=== PATIENT | male | born 1940 | race Caucasian/White ===

== ENCOUNTER 2018-06-17 21:12 | Inpatient (IN) | payer MEDICARE, MEDICAID ==
[~2018-06-17] VITALS: Ht 180.3 cm; Wt 76.2 kg
[~2018-06-17 21:12] MED LIST: ALBU8.5H8 INH; ASA/500T PO; ASPI-496 PO; ASPI-515 PO; CALCIUM +D PO; MULTIVITAMIN PO; OMEG300C PO; OMEPRAZOLE PO; RED YEAST RICE PO; SPIRIVA INH; UMEC1DIS INH; VITA1CAP3 PO
[2018-06-17] MEDS ORDERED: ALBUTEROL/IPRATROPIUM 2.5MG/0.5MG, 3 ML ONE (21:14)
[2018-06-17] MEDS ORDERED: methylPREDNISolone SOD SUCC 125 MG/2 ML ONE (21:26)
[2018-06-17] MEDS ORDERED: IPRATROPIUM 0.5 MG/2.5 ML INHA NPPB SCH (21:30)
[2018-06-17] MEDS ORDERED: methylPREDNISolone SOD SUCC 125 MG/2 ML IVP ONE (21:30)
[2018-06-17] MEDS ORDERED: ALBUTEROL 0.5%, 20ML NPPB SCH (21:30)
[2018-06-17] MEDS ORDERED: SODIUM CHLORIDE FLUSH 10ML SYR IVF ONE (21:30)
[2018-06-17] MEDS ORDERED: SODIUM CHLORIDE 0.9% 1,000ML IVBOLUS ONE (21:30)
[2018-06-17] MEDS ORDERED: MAGNESIUM SULFATE PMX 2GM/50ML 50 ML IVPB ONE (21:30)
[2018-06-17 21:49] LABS: BASOPHILS # (AUTO) 0.07 x10^3/uL (0-0.1); BASOPHILS % (AUTO) 1 % (0-1); EOSINOPHILS # (AUTO) 0.99 x10^3/uL (0-0.4); EOSINOPHILS % (AUTO) 12 % (1-7); LYMPHOCYTES # (AUTO) 2.07 x10^3/uL (1-3.4); LYMPHOCYTES % (AUTO) 26 % (22-44); MD NO; MEAN CORPUSCULAR HEMOGLOBIN 33.3 pg (27.5-34.5); MEAN CORPUSCULAR HGB CONC 33.3 g/dL (33.2-36.2); MEAN PLATELET VOLUME 7.4 fL (7.4-10.4); MONOCYTES # (AUTO) 0.65 x10^3/uL (0.2-0.8); MONOCYTES % (AUTO) 8 % (2-9); NEUTROPHILS # (AUTO) 4.27 x10^3/uL (1.8-6.8); NEUTROPHILS % (AUTO) 53 % (42-75); PLATELET COUNT 198 x10^3/uL (130-400); RED BLOOD COUNT 4.48 x10^6/uL (4.38-5.82); RED CELL DISTRIBUTION WIDTH 14.4 % (9.4-14.8)
[2018-06-17] MEDS ORDERED: LORazepam 2 MG/ML, 1ML ONE (21:55)
[2018-06-17 21:58] LABS: ALANINE AMINOTRANSFERASE 25 U/L (12-78); ALBUMIN 3.9 g/dL (3.4-5.0); ANION GAP 5 mmol/L (5-15); CALCIUM 8.6 mg/dL (8.5-10.1); CHLORIDE 109 mmol/L (98-107); CREATININE 0.99 mg/dL (0.7-1.3)
[2018-06-17] MEDS ORDERED: ALBUTEROL/IPRATROPIUM 2.5MG/0.5MG, 3 ML NPPB PRN (22:00)
[2018-06-17] MEDS ORDERED: PLEASE ENTER HEIGHT AND WEIGHT MC SCH (22:00)
[2018-06-17 22:02] LABS: ALKALINE PHOSPHATASE 106 U/L (45-117); BILIRUBIN,TOTAL 0.6 mg/dL (0.2-1.0); TROPONIN I < 0.015 ng/mL (0.000-0.045)
[2018-06-17] MEDS ORDERED: ASPI-496 PO (22:24)
[2018-06-17] MEDS ORDERED: ALBU18HF INH (22:24)
[2018-06-17] MEDS ORDERED: OMEP-110 PO (22:24)
[2018-06-17] MEDS ORDERED: UMEC1DIS INH (22:24)
[2018-06-17] MEDS ORDERED: LORazepam 2 MG/ML, 1ML IVPush ONE (22:30)
[2018-06-17 22:57] VITALS: BP 147/74
[2018-06-17] MEDS ORDERED: TEMAZEPAM 15 MG CAPSULE PO PRN (23:00)
[2018-06-17] MEDS ORDERED: LABETALOL 5MG/ML, 20ML IVPush PRN (23:00)
[2018-06-17] MEDS ORDERED: ONDANSETRON ODT 4 MG PO PRN (23:00)
[2018-06-17] MEDS ORDERED: ACETAMINOPHEN 325 MG TABLET PO PRN (23:00)
[2018-06-17] MEDS: NICOTINE 7 MG/24 HR PATCH.TD24 TD SCH (23:00)
[2018-06-17] MEDS: DOXYCYCLINE 100MG CAP PO SCH (23:55)
[2018-06-17] MEDS: ENOXAPARIN 40 MG/0.4 ML SQ SCH (23:55)
[2018-06-18] MEDS: methylPREDNISolone SOD SUCC 40 MG/ML IVPush SCH ×3 (00:03→23:30)
[2018-06-18 02:00] VITALS: BP 123/74
[2018-06-18] MEDS ORDERED: ALBUTEROL 0.5%, 20ML NPPB SCH (03:00)
[2018-06-18] MEDS ORDERED: ALBUTEROL/IPRATROPIUM 2.5MG/0.5MG, 3 ML NPPB PRN (04:00)
[2018-06-18 05:59] LABS: ALANINE AMINOTRANSFERASE 26 U/L (12-78); ALBUMIN 3.5 g/dL (3.4-5.0); ANION GAP 7 mmol/L (5-15); CALCIUM 8.5 mg/dL (8.5-10.1); CHLORIDE 108 mmol/L (98-107); CREATININE 0.97 mg/dL (0.7-1.3)
[2018-06-18 06:00] LABS: ALKALINE PHOSPHATASE 108 U/L (45-117); BILIRUBIN,TOTAL 0.5 mg/dL (0.2-1.0); TOTAL PROTEIN 6.7 g/dL (6.4-8.2)
[2018-06-18] MEDS: ALBUTEROL/IPRATROPIUM 2.5MG/0.5MG, 3 ML NPPB SCH ×5 (06:00→22:00)
[2018-06-18 06:01] LABS: BASOPHILS # (AUTO) 0.02 x10^3/uL (0-0.1); BASOPHILS % (AUTO) 0 % (0-1); EOSINOPHILS # (AUTO) 0.01 x10^3/uL (0-0.4); EOSINOPHILS % (AUTO) 0 % (1-7); LYMPHOCYTES # (AUTO) 0.55 x10^3/uL (1-3.4); LYMPHOCYTES % (AUTO) 7 % (22-44); MD NO; MEAN CORPUSCULAR HEMOGLOBIN 33.1 pg (27.5-34.5); MEAN CORPUSCULAR HGB CONC 33.5 g/dL (33.2-36.2); MEAN CORPUSCULAR VOLUME 98.8 fL (81-97); MEAN PLATELET VOLUME 7.6 fL (7.4-10.4); MONOCYTES # (AUTO) 0.03 x10^3/uL (0.2-0.8); MONOCYTES % (AUTO) 0 % (2-9); NEUTROPHILS # (AUTO) 7.27 x10^3/uL (1.8-6.8); NEUTROPHILS % (AUTO) 92 % (42-75); PLATELET COUNT 197 x10^3/uL (130-400); RED BLOOD COUNT 4.32 x10^6/uL (4.38-5.82); RED CELL DISTRIBUTION WIDTH 14.2 % (9.4-14.8)
[2018-06-18 07:59] VITALS: BP 134/67
[2018-06-18] MEDS: ASPIRIN 81 MG TABLET EC PO SCH (08:26)
[2018-06-18] MEDS: OMEPRAZOLE 20 MG CAPSULE.DR PO SCH (08:26)
[2018-06-18] MEDS: DOXYCYCLINE 100MG CAP PO SCH ×2 (08:26→20:33)
[2018-06-18 13:00] VITALS: BP 120/65
[2018-06-18 20:00] VITALS: BP 107/51
[2018-06-18] MEDS ORDERED: ZOLPIDEM 5MG TABLET PO SCH (21:00)
[2018-06-18] MEDS: NICOTINE 7 MG/24 HR PATCH.TD24 TD SCH (23:00)
[2018-06-18] MEDS: ENOXAPARIN 40 MG/0.4 ML SQ SCH (23:30)
[2018-06-19 02:00] VITALS: BP 125/65
[2018-06-19 05:44] LABS: ANION GAP 4 mmol/L (5-15); CALCIUM 8.7 mg/dL (8.5-10.1); CHLORIDE 108 mmol/L (98-107)
[2018-06-19 05:46] LABS: CREATININE 0.93 mg/dL (0.7-1.3)
[2018-06-19] MEDS: ALBUTEROL/IPRATROPIUM 2.5MG/0.5MG, 3 ML NPPB SCH ×2 (06:29→10:00)
[2018-06-19 06:58] VITALS: BP 131/65
[2018-06-19] MEDS: OMEPRAZOLE 20 MG CAPSULE.DR PO SCH (09:28)
[2018-06-19] MEDS: DOXYCYCLINE 100MG CAP PO SCH (09:28)
[2018-06-19] MEDS: ASPIRIN 81 MG TABLET EC PO SCH (09:28)
[2018-06-19 12:23] VITALS: BP 125/72
[2018-06-19] MEDS ORDERED: IPRA3AMP30 NPPB (14:11)
[2018-06-19] MEDS ORDERED: DOXY100C2 PO (14:11)
[2018-06-19] MEDS ORDERED: PRED10TA PO (14:11)
== END 2018-06-19 15:22 | disposition home health service (06) | DRG 189 ==
LOC: EDBD 21:12 → ED 22:18 → MERGE 22:36 → EDIP 22:36 → 4WST 23:32
PROVIDERS: ADMIT Internal Medicine; ATTEND Internal Medicine
PROC: 5A09357 Assistance with Respiratory Ventilation, Less than 24 Consecutive Hours, Continuous Positive Airway Pressure (ICD-10-PCS; principal; 2018-06-17)
DX: J96.01 Acute respiratory failure with hypoxia (principal); E87.4 Mixed disorder of acid-base balance; J44.1 Chronic obstructive pulmonary disease with (acute) exacerbation; F17.200 Nicotine dependence, unspecified, uncomplicated; K21.9 Gastro-esophageal reflux disease without esophagitis; R00.0 Tachycardia, unspecified; Z87.01 Personal history of pneumonia (recurrent)
CPT/HCPCS: 36415; 36600; 71045; 80048; 80053; 82803; 83735; 83880; 84484; 85025; 87040; 93005; 94640; 94660; J1650; J7620; J2060; J2920; J2930; J3475; J7030; J7512

== ENCOUNTER → 2018-06-25 | Outpatient (CLI) | payer MEDICARE, MEDICAID ==
[~2018-06-25] MED LIST changes: +ALBU18HF INH; +DOXY100C2 PO; +IPRA3AMP30 NPPB; +OMEP-110 PO; +PRED10TA PO
== END | disposition home or self-care (01) ==
LOC: CFH 08:31
PROVIDERS: ATTEND Family Medicine
DX: Z12.2 Encounter for screening for malignant neoplasm of respiratory organs (principal); J43.9 Emphysema, unspecified; R91.1 Solitary pulmonary nodule; F17.210 Nicotine dependence, cigarettes, uncomplicated
CPT/HCPCS: G0297

== ENCOUNTER 2018-08-27 07:42 | Inpatient (IN) | payer MEDICARE, MEDICAID ==
[~2018-08-27] VITALS: Ht 180.3 cm; Wt 72.8 kg
[2018-08-27] MEDS ORDERED: ALBUTEROL/IPRATROPIUM 2.5MG/0.5MG, 3 ML ONE ×2 (07:58→11:44)
[2018-08-27] MEDS ORDERED: SODIUM CHLORIDE FLUSH 10ML SYR IVF ONE (08:00)
[2018-08-27] MEDS ORDERED: ALBUTEROL/IPRATROPIUM 2.5MG/0.5MG, 3 ML NPPB SCH (08:00)
[2018-08-27] MEDS ORDERED: methylPREDNISolone SOD SUCC 125 MG/2 ML IVP ONE (08:00)
[2018-08-27 08:10] LABS: BASOPHILS # (AUTO) 0.09 x10^3/uL (0-0.1); BASOPHILS % (AUTO) 1 % (0-1); EOSINOPHILS # (AUTO) 0.65 x10^3/uL (0-0.4); EOSINOPHILS % (AUTO) 9 % (1-7); LYMPHOCYTES # (AUTO) 1.61 x10^3/uL (1-3.4); LYMPHOCYTES % (AUTO) 23 % (22-44); MD NO; MEAN CORPUSCULAR HEMOGLOBIN 32.6 pg (27.5-34.5); MEAN CORPUSCULAR HGB CONC 32.6 g/dL (33.2-36.2); MEAN CORPUSCULAR VOLUME 99.8 fL (81-97); MONOCYTES # (AUTO) 0.65 x10^3/uL (0.2-0.8); MONOCYTES % (AUTO) 9 % (2-9); NEUTROPHILS # (AUTO) 4.06 x10^3/uL (1.8-6.8); NEUTROPHILS % (AUTO) 58 % (42-75); PLATELET COUNT 261 x10^3/uL (130-400); RED BLOOD COUNT 3.86 x10^6/uL (4.38-5.82); RED CELL DISTRIBUTION WIDTH 14.2 % (9.4-14.8)
[2018-08-27 08:21] LABS: ALANINE AMINOTRANSFERASE 28 U/L (12-78); ALBUMIN 3.6 g/dL (3.4-5.0); ANION GAP 8 mmol/L (5-15); CALCIUM 8.8 mg/dL (8.5-10.1); CHLORIDE 109 mmol/L (98-107); CREATININE 1.06 mg/dL (0.7-1.3)
[2018-08-27 08:25] LABS: ALKALINE PHOSPHATASE 91 U/L (45-117); BILIRUBIN,TOTAL 0.4 mg/dL (0.2-1.0); TOTAL PROTEIN 6.8 g/dL (6.4-8.2); TROPONIN I < 0.015 ng/mL (0.000-0.045)
[2018-08-27] MEDS ORDERED: methylPREDNISolone SOD SUCC 125 MG/2 ML ONE (08:40)
[2018-08-27] MEDS ORDERED: OMNIPAQUE 350 MG/ML, 100ML BOTTLE ONE (09:24)
[2018-08-27] MEDS ORDERED: ASPIRIN 1 MG PO SCH (10:30)
[2018-08-27] MEDS ORDERED: ACETAMINOPHEN 325 MG TABLET PO PRN (10:30)
[2018-08-27] MEDS: PANTOPROZOLE 40MG TABLET PO SCH (10:30)
[2018-08-27] MEDS ORDERED: methylPREDNISolone SOD SUCC 40 MG/ML IVPush SCH (10:30)
[2018-08-27] MEDS: ENOXAPARIN 30 MG/0.3 ML SQ SCH (11:17)
[2018-08-27] MEDS ORDERED: ASPIRIN 81 MG TABLET EC PO SCH (11:59)
[2018-08-27 12:07] VITALS: BP 137/69
[2018-08-27] MEDS: ALBUTEROL/IPRATROPIUM 2.5MG/0.5MG, 3 ML NPPB SCH ×2 (15:00→20:00)
[2018-08-27] MEDS: methylPREDNISolone SOD SUCC 125 MG/2 ML IVPush SCH (18:03)
[2018-08-27] MEDS ORDERED: DIPHENHYDRAMINE 25 MG CAPSULE PO PRN (19:00)
[2018-08-27 20:13] VITALS: BP 108/64
[2018-08-27] MEDS: TEMPLATE NON-FORMULARY MED. (Umeclidinium Brm/Vilanterol Tr (Anoro Ellipta 62.5-25 Mcg Inh INH SCH (21:00)
[2018-08-28 00:45] VITALS: BP 119/65
[2018-08-28] MEDS: methylPREDNISolone SOD SUCC 125 MG/2 ML IVPush SCH ×2 (02:39→10:45)
[2018-08-28] MEDS: ENOXAPARIN 30 MG/0.3 ML SQ SCH (02:39)
[2018-08-28] MEDS: ALBUTEROL/IPRATROPIUM 2.5MG/0.5MG, 3 ML NPPB SCH ×2 (05:54→10:11)
[2018-08-28 07:29] VITALS: BP 107/59
[2018-08-28] MEDS: PANTOPROZOLE 40MG TABLET PO SCH (07:44)
[2018-08-28] MEDS: TEMPLATE NON-FORMULARY MED. (Umeclidinium Brm/Vilanterol Tr (Anoro Ellipta 62.5-25 Mcg Inh INH SCH (09:00)
[2018-08-28 12:00] VITALS: BP 125/76
[2018-08-28] MEDS ORDERED: GUAI600T80 PO (13:25)
[2018-08-28] MEDS ORDERED: PRED20TA PO (13:25)
== END 2018-08-28 14:05 | disposition home or self-care (01) | DRG 191 ==
LOC: ED 10:00 → EDIP 10:21 → 3NW 11:55
PROVIDERS: ADMIT Hospitalist; ATTEND Hospitalist
DX: J44.1 Chronic obstructive pulmonary disease with (acute) exacerbation (principal); J96.12 Chronic respiratory failure with hypercapnia; F17.200 Nicotine dependence, unspecified, uncomplicated; K21.9 Gastro-esophageal reflux disease without esophagitis; Z79.899 Other long term (current) drug therapy; Z99.81 Dependence on supplemental oxygen; Z79.82 Long term (current) use of aspirin
CPT/HCPCS: 36415; 71045; 71275; 80053; 83880; 84484; 85025; 85379; 93005; 93306; 93970; 94640; 96374; G0378; J1650; J7620; Q9967; J2930; Q0163

== ENCOUNTER → 2019-01-14 | Outpatient (CLI) | payer MEDICARE, MEDICAID ==
[~2019-01-14] MED LIST changes: +GUAI600T80 PO; +PRED20TA PO
== END | disposition home or self-care (01) ==
LOC: CFH 09:11
PROVIDERS: ATTEND Family Medicine
DX: Z12.2 Encounter for screening for malignant neoplasm of respiratory organs (principal); J43.2 Centrilobular emphysema; R91.1 Solitary pulmonary nodule; I25.10 Atherosclerotic heart disease of native coronary artery without angina pectoris; F17.210 Nicotine dependence, cigarettes, uncomplicated
CPT/HCPCS: G0297

== ENCOUNTER 2019-03-20 06:42 | Inpatient (IN) | payer MEDICARE, MEDICAID ==
[~2019-03-20] VITALS: Ht 180.3 cm; Wt 70.6 kg
--- NOTE | 2019-03-20 06:50 | NUR ---
78 YR OLD MALE ARRIVED VIA EMS, PER REPORT PT WITH INCREASING SOB OVER THE LAST COUPLE OF HOURS. NO RELIEF FROM INHALERS. PT SPEAKING IN 6-8 WORD SENTENCES. UPON EMS ARRIVAL PT WITH RA SAT OF 80% INCREASED TO 96% WITH ALBUTEROL AND DUONEB INHALERS. PT WITH 18G IN LFA. PT PLACED ON MONITORS, AUTO BP AND PULSE OX MONITORS. PT PLACED ON OXYMASK AT 3L. DR MCGARRY AT BEDSIDE TO EVAL PT
[2019-03-20] MEDS ORDERED: SODIUM CHLORIDE FLUSH 10ML SYR IVF ONE (07:00)
[2019-03-20 07:31] LABS: BASOPHILS # (AUTO) 0.05 x10^3/uL (0-0.1); BASOPHILS % (AUTO) 1 % (0-1); EOSINOPHILS # (AUTO) 0.54 x10^3/uL (0-0.4); EOSINOPHILS % (AUTO) 8 % (1-7); LYMPHOCYTES # (AUTO) 1.64 x10^3/uL (1-3.4); LYMPHOCYTES % (AUTO) 24 % (22-44); MD NO; MEAN CORPUSCULAR HEMOGLOBIN 32.3 pg (27.5-34.5); MEAN CORPUSCULAR HGB CONC 33.3 g/dL (33.2-36.2); MEAN PLATELET VOLUME 7.4 fL (7.4-10.4); MONOCYTES # (AUTO) 0.65 x10^3/uL (0.2-0.8); MONOCYTES % (AUTO) 10 % (2-9); NEUTROPHILS # (AUTO) 3.89 x10^3/uL (1.8-6.8); NEUTROPHILS % (AUTO) 57 % (42-75); PLATELET COUNT 214 x10^3/uL (130-400); RED BLOOD COUNT 4.19 x10^6/uL (4.38-5.82); RED CELL DISTRIBUTION WIDTH 14.2 % (9.4-14.8)
[2019-03-20 07:43] LABS: ALANINE AMINOTRANSFERASE 21 U/L (12-78); ALBUMIN 3.6 g/dL (3.4-5.0); ANION GAP 7 mmol/L (5-15); CHLORIDE 113 mmol/L (98-107); CREATININE 1.14 mg/dL (0.7-1.3)
[2019-03-20 07:47] LABS: ALKALINE PHOSPHATASE 88 U/L (45-117); BILIRUBIN,TOTAL 0.3 mg/dL (0.2-1.0); TOTAL PROTEIN 6.6 g/dL (6.4-8.2)
--- NOTE | 2019-03-20 08:09 | NUR ---
PT SITTING UP ON GURNEY, NO ACUTE DISTRESS NOTED, PT UPDATED ON POC. NO NEEDS EXPRESSED AT THIS TIME.
--- NOTE | 2019-03-20 08:29 | NUR ---
REPORT TO DYAN FLORES, POC DISCUSSED.
[2019-03-20 08:57] VITALS: BP 138/71
[2019-03-20] MEDS ORDERED: SODIUM CHLORIDE FLUSH 10ML SYR IVF PRN (09:00)
[2019-03-20] MEDS ORDERED: OMEPRAZOLE 20 MG CAPSULE.DR PO SCH (10:00)
[2019-03-20] MEDS ORDERED: hydrALAzine 20 MG/ML, 1ML IVPush PRN (10:00)
[2019-03-20] MEDS ORDERED: ZOLPIDEM 5MG TABLET PO PRN (10:00)
[2019-03-20] MEDS ORDERED: ENOXAPARIN 40 MG/0.4 ML SQ SCH (10:00)
[2019-03-20] MEDS ORDERED: GUAIFENESIN/COD200MG-20MG/10ML LIQUID PO PRN (10:00)
[2019-03-20] MEDS ORDERED: NITROGLYCERIN 0.4 MG BOTTLE (25 TABS) SL PRN (10:00)
[2019-03-20] MEDS ORDERED: NICOTINE 7 MG/24 HR PATCH.TD24 TD SCH (10:00)
[2019-03-20] MEDS ORDERED: ASPIRIN 81 MG TABLET EC PO SCH (10:00)
[2019-03-20] MEDS ORDERED: ACETAMINOPHEN 325 MG TABLET PO PRN (10:00)
[2019-03-20] MEDS ORDERED: IPRATROPIUM 0.5 MG/2.5 ML INHA NPPB SCH ×2 (11:00)
[2019-03-20 15:22] VITALS: BP 127/71
[2019-03-20] MEDS ORDERED: BUDESONIDE 0.5 MG/2 ML INHA NPPB SCH (21:00)
== END 2019-03-20 15:52 | disposition left against medical advice (07) | DRG 189 ==
LOC: ED 07:28 → EDIP 08:00 → 3NE 08:50
PROVIDERS: ADMIT Hospitalist; ATTEND Hospitalist
DX: J96.21 Acute and chronic respiratory failure with hypoxia (principal); F12.90 Cannabis use, unspecified, uncomplicated; F17.210 Nicotine dependence, cigarettes, uncomplicated; J43.9 Emphysema, unspecified; K21.9 Gastro-esophageal reflux disease without esophagitis; Z53.21 Procedure and treatment not carried out due to patient leaving prior to being seen by health care provider; Z90.79 Acquired absence of other genital organ(s); Z99.81 Dependence on supplemental oxygen
CPT/HCPCS: 36415; 71045; 80053; 83880; 85025; 93005; 94640; 99285; G0378; J1650; J7644; J7512

== ENCOUNTER 2019-03-21 10:15 | Emergency (ER) | payer MEDICARE, MEDICAID ==
[~2019-03-21] VITALS: Ht 177.8 cm; Wt 75.0 kg
[2019-03-21] MEDS ORDERED: PLEASE ENTER HEIGHT AND WEIGHT MC SCH (10:30)
[2019-03-21] MEDS ORDERED: SODIUM CHLORIDE FLUSH 10ML SYR IVF ONE (10:30)
--- NOTE | 2019-03-21 12:09 | NUR ---
we are awaiting communication from the [facility] o2 regarding oxygen supplementation. he is sitting comfortably on an ER gurney watching television. he is awre of the process in place, and is agreeable to plan. o2 saturation is >90% w 4l nc. i will continue to monitor until time of d/c.
--- NOTE | 2019-03-21 14:04 | NUR ---
PT IS RESTING COMFORTABLY ON AN E.R. GURNEY. NO ACUTE CHANGES NOTED HE AWAITS HOME O2. I WILL CONTINUE TO MONITOR AND TREAT ORDERED, WELL PRN.
--- NOTE | 2019-03-21 14:42 | NUR ---
THROUGHPUT RN-RECEIVED CALL FROM [facility] THAT PATIENT IS ALREADY ON SERVICE FOR OXYGEN WITH [facility] AND THEY WILL NOT BE ABLE TO PROVIDE SERVICE. CALLED [facility] AND FAXED ORDERES TO THEM. [facility] TO CALL BACK WITH ETA FOR O2 DELIVERY.
--- NOTE | 2019-03-21 15:00 | NUR ---
Bedside SBAR report received from RNSebastien. Pt sitting upright on gurney, O2 via NC on. Pt is aware that he is waiting for the home oxygen provider to bring him an O2 tank here and a concentrater at his home and then he will be d/c'd via cab.
--- NOTE | 2019-03-21 15:05 | NUR ---
ROCIO (rn) IS ASSUMING CARE OF THIS PT AT THIS TIME. SBAR REPORT WAS EXCHANGED AT THE BEDSIDE.
--- NOTE | 2019-03-21 15:55 | NUR ---
Oxygen delivered and rep at bedside with pt.
[2019-03-21 16:03] VITALS: BP 147/94
--- NOTE | 2019-03-21 16:04 | NUR ---
Patient/Caregiver given discharge instructions and they have confirmed that they understand the instructions. Patient ambulatory with steady gait. Pt given [facility] voucher for safe discharge home.
== END 2019-03-21 16:05 | disposition home or self-care (01) ==
LOC: ED 12:41
DX: J44.9 Chronic obstructive pulmonary disease, unspecified (principal); Z76.0 Encounter for issue of repeat prescription; F17.200 Nicotine dependence, unspecified, uncomplicated; Z99.81 Dependence on supplemental oxygen
CPT/HCPCS: 93005; 99283

== ENCOUNTER 2019-06-24 06:14 | Emergency (ER) | payer MEDICARE, MEDICAID ==
[~2019-06-24] VITALS: Ht 180.3 cm; Wt 77.2 kg
[2019-06-24 07:46] VITALS: BP 134/66
== END 2019-06-24 08:19 | disposition home or self-care (01) ==
LOC: ED 08:09
DX: J44.1 Chronic obstructive pulmonary disease with (acute) exacerbation (principal); K21.9 Gastro-esophageal reflux disease without esophagitis; Z87.891 Personal history of nicotine dependence
CPT/HCPCS: 36415; 71046; 80048; 82040; 83880; 84484; 85025; 93005; 94640; 96374; 99284; J2930; J7620

== ENCOUNTER 2019-10-14 03:19 | Emergency (ER) | payer MEDICARE, MEDICAID ==
[~2019-10-14] VITALS: Ht 180.3 cm; Wt 73.0 kg
[~2019-10-14 03:19] MED LIST changes: +METH4TAB2 PO
--- NOTE | 2019-10-14 03:28 | NUR ---
Patient states he experienced sudden SOB. Patient is normally on O2 at home via NC at 4lpm. Patient states he took his Ventolin tonight and it did not help. Patient states he was admitted to the hospital for respiratory problems and was prescribed "something that you take one day and more the next and more the next," however patient stopped taking it when he had about three days left because it made him feel dizzy. Patient is resting in the gurney in no apparent distress. He is speaking in full sentences. Skin PWD.
[2019-10-14 03:38] LABS: BASOPHILS # (AUTO) 0.05 x10^3/uL (0-0.1); BASOPHILS % (AUTO) 1 % (0-1); EOSINOPHILS # (AUTO) 0.43 x10^3/uL (0-0.4); EOSINOPHILS % (AUTO) 4 % (1-7); LYMPHOCYTES # (AUTO) 1.17 x10^3/uL (1-3.4); LYMPHOCYTES % (AUTO) 12 % (22-44); MD NO; MEAN CORPUSCULAR HEMOGLOBIN 33.5 pg (27.5-34.5); MEAN CORPUSCULAR HGB CONC 32.5 g/dL (33.2-36.2); MONOCYTES # (AUTO) 0.61 x10^3/uL (0.2-0.8); MONOCYTES % (AUTO) 6 % (2-9); NEUTROPHILS # (AUTO) 7.67 x10^3/uL (1.8-6.8); NEUTROPHILS % (AUTO) 77 % (42-75); PLATELET COUNT 306 x10^3/uL (130-400); RED BLOOD COUNT 3.86 x10^6/uL (4.38-5.82); RED CELL DISTRIBUTION WIDTH 14.4 % (9.4-14.8)
[2019-10-14] MEDS ORDERED: ALBUTEROL/IPRATROPIUM 2.5MG/0.5MG, 3 ML ONE (03:42)
--- NOTE | 2019-10-14 03:47 | NUR ---
RT in room
[2019-10-14 03:52] LABS: ALBUMIN 3.5 g/dL (3.4-5.0); ANION GAP 3 mmol/L (5-15); CALCIUM 8.9 mg/dL (8.5-10.1); CHLORIDE 109 mmol/L (98-107); CREATININE 0.98 mg/dL (0.7-1.3)
[2019-10-14 03:56] LABS: TROPONIN I < 0.015 ng/mL (0.000-0.045)
--- NOTE | 2019-10-14 04:18 | NUR ---
Patient resting comfortably in gurney and in no obvious distress. Patient states he feels sleepy.
[2019-10-14 04:49] VITALS: BP 132/58
== END 2019-10-14 04:59 ==
LOC: ED 04:40
DX: J44.1 Chronic obstructive pulmonary disease with (acute) exacerbation (principal); J90 Pleural effusion, not elsewhere classified; I10 Essential (primary) hypertension; Z87.891 Personal history of nicotine dependence; Z72.89 Other problems related to lifestyle
CPT/HCPCS: 36415; 71045; 80048; 82040; 84484; 85025; 93005; 94640; 99284; J7512

== ENCOUNTER 2019-12-06 02:43 | Emergency (ER) | payer MEDICARE, MEDICAID ==
[~2019-12-06] VITALS: Ht 180.3 cm; Wt 75.0 kg
[2019-12-06] MEDS ORDERED: ALBUTEROL SULFATE 2.5 MG/3 ML NPPB ONE (03:00)
[2019-12-06] MEDS ORDERED: SODIUM CHLORIDE FLUSH 10ML SYR IVF ONE (03:00)
[2019-12-06 03:10] LABS: BASOPHILS # (AUTO) 0.01 x10^3/uL (0-0.1); BASOPHILS % (AUTO) 0 % (0-1); EOSINOPHILS # (AUTO) 0.14 x10^3/uL (0-0.4); EOSINOPHILS % (AUTO) 2 % (1-7); LYMPHOCYTES # (AUTO) 1.07 x10^3/uL (1-3.4); LYMPHOCYTES % (AUTO) 17 % (22-44); MD NO; MEAN CORPUSCULAR HEMOGLOBIN 33.4 pg (27.5-34.5); MEAN CORPUSCULAR HGB CONC 33.5 g/dL (33.2-36.2); MEAN CORPUSCULAR VOLUME 99.6 fL (81-97); MEAN PLATELET VOLUME 7.3 fL (7.4-10.4); MONOCYTES # (AUTO) 0.63 x10^3/uL (0.2-0.8); MONOCYTES % (AUTO) 10 % (2-9); NEUTROPHILS # (AUTO) 4.39 x10^3/uL (1.8-6.8); NEUTROPHILS % (AUTO) 70 % (42-75); PLATELET COUNT 254 x10^3/uL (130-400); RED CELL DISTRIBUTION WIDTH 15.1 % (9.4-14.8)
[2019-12-06] MEDS ORDERED: ALBUTEROL SULFATE 2.5MG/0.5ML ONE (03:18)
--- NOTE | 2019-12-06 03:20 | NUR ---
PT RESTING WITH EYES CLOSED. MONITOR IN PLACE.
[2019-12-06 03:23] LABS: ALBUMIN 3.2 g/dL (3.4-5.0); ANION GAP 4 mmol/L (5-15); CALCIUM 8.9 mg/dL (8.5-10.1); CHLORIDE 111 mmol/L (98-107); CREATININE 0.98 mg/dL (0.7-1.3)
[2019-12-06 03:26] LABS: TROPONIN I < 0.015 ng/mL (0.000-0.045)
[2019-12-06 04:40] VITALS: BP 146/71
== END 2019-12-06 04:42 | disposition home or self-care (01) ==
LOC: ED 04:20
DX: J44.1 Chronic obstructive pulmonary disease with (acute) exacerbation (principal); I10 Essential (primary) hypertension; F17.210 Nicotine dependence, cigarettes, uncomplicated
CPT/HCPCS: 36415; 71045; 80048; 82040; 83880; 84484; 85025; 93005; 94640; 99284; J7512; J7613

== ENCOUNTER 2020-02-14 03:59 | Emergency (ER) | payer MEDICAID, MEDICARE ==
[~2020-02-14] VITALS: Ht 180.3 cm; Wt 75.0 kg
--- NOTE | 2020-02-14 04:29 | NUR ---
Pt arrives to ed for chest pain with onset baout a week ago but has progressively gotten worse. Pt reports he has cracked ribs on his right side that is causing him discomfort onto his left side. Pt also has golf ball size lump on the lower right lateral side of his chest that is palpable. Pt reports that his pcp wants him to get a cat scan or mri to determine whats going on with the mass. Pt is in the low 90-92% on room air. Pt reports that he feels better with oxygen on. Pt has clear lung sounds. Even and shallow respirations. Pt connected to monitors and call light in reach.
--- NOTE | 2020-02-14 04:59 | NUR ---
Bedside report to Vanna FLORES.
[2020-02-14] MEDS ORDERED: SODIUM CHLORIDE FLUSH 10ML SYR IVF ONE (05:30)
[2020-02-14 05:42] LABS: BASOPHILS # (AUTO) 0.04 x10^3/uL (0-0.1); BASOPHILS % (AUTO) 1 % (0-1); EOSINOPHILS # (AUTO) 0.19 x10^3/uL (0-0.4); EOSINOPHILS % (AUTO) 3 % (1-7); LYMPHOCYTES # (AUTO) 1.39 x10^3/uL (1-3.4); LYMPHOCYTES % (AUTO) 21 % (22-44); MD NO; MEAN CORPUSCULAR HEMOGLOBIN 32.8 pg (27.5-34.5); MEAN CORPUSCULAR HGB CONC 33.4 g/dL (33.2-36.2); MEAN CORPUSCULAR VOLUME 98.2 fL (81-97); MEAN PLATELET VOLUME 7.5 fL (7.4-10.4); MONOCYTES # (AUTO) 0.45 x10^3/uL (0.2-0.8); MONOCYTES % (AUTO) 7 % (2-9); NEUTROPHILS # (AUTO) 4.63 x10^3/uL (1.8-6.8); NEUTROPHILS % (AUTO) 69 % (42-75); PLATELET COUNT 222 x10^3/uL (130-400); RED BLOOD COUNT 3.72 x10^6/uL (4.38-5.82); RED CELL DISTRIBUTION WIDTH 13.5 % (9.4-14.8)
--- NOTE | 2020-02-14 05:50 | NUR ---
Pt ambulated to restroom without o2. Upon returning to room, pt'sd o2 sat was 85% on room air. Pt placed on 2L nc and sat's improved
[2020-02-14 05:56] LABS: ALBUMIN 3.6 g/dL (3.4-5.0); ANION GAP 6 mmol/L (5-15); CALCIUM 9.3 mg/dL (8.5-10.1); CHLORIDE 108 mmol/L (98-107)
[2020-02-14 06:01] LABS: ALANINE AMINOTRANSFERASE 17 U/L (12-78); ALKALINE PHOSPHATASE 85 U/L (45-117); BILIRUBIN,TOTAL 0.4 mg/dL (0.2-1.0); CREATININE 1.18 mg/dL (0.7-1.3); TOTAL PROTEIN 6.7 g/dL (6.4-8.2); TROPONIN I < 0.015 ng/mL (0.000-0.045)
[2020-02-14] MEDS ORDERED: OMNIPAQUE 350 MG/ML, 100ML BOTTLE ONE (06:45)
--- NOTE | 2020-02-14 07:00 | NUR ---
REPORT FROM DONALD. PT SLEEPING. VSS
--- NOTE | 2020-02-14 08:23 | NUR ---
Patient/Caregiver given discharge instructions and they have confirmed that they understand the instructions. Patient ambulatory with steady gait.
[2020-02-14 08:34] VITALS: BP 136/77
== END 2020-02-14 08:36 | disposition home or self-care (01) ==
LOC: ED 04:22
DX: J44.1 Chronic obstructive pulmonary disease with (acute) exacerbation (principal); R07.89 Other chest pain; K21.9 Gastro-esophageal reflux disease without esophagitis; I10 Essential (primary) hypertension; J96.90 Respiratory failure, unspecified, unspecified whether with hypoxia or hypercapnia; R94.31 Abnormal electrocardiogram [ECG] [EKG]
CPT/HCPCS: 36415; 71045; 71275; 80053; 83880; 84484; 85025; 93005; 99285; Q9967

== ENCOUNTER 2020-02-24 07:01 | Emergency (ER) | payer MEDICARE ==
[~2020-02-24] VITALS: Ht 180.3 cm; Wt 71.4 kg
[2020-02-24 07:05] VITALS: BP 151/77
--- NOTE | 2020-02-24 08:11 | NUR ---
Patient given discharge instructions and Rx, they have confirmed that they understand the instructions. Patient ambulatory with steady gait.
== END 2020-02-24 08:12 | disposition home or self-care (01) ==
LOC: ED 07:17
DX: K40.91 Unilateral inguinal hernia, without obstruction or gangrene, recurrent (principal); J43.9 Emphysema, unspecified; Z76.0 Encounter for issue of repeat prescription; I10 Essential (primary) hypertension; F17.210 Nicotine dependence, cigarettes, uncomplicated; K21.9 Gastro-esophageal reflux disease without esophagitis
CPT/HCPCS: 99281

== ENCOUNTER 2020-03-20 05:21 | Emergency (ER) | payer MEDICARE ==
[~2020-03-20] VITALS: Ht 180.3 cm; Wt 70.3 kg
[2020-03-20 05:23] VITALS: BP 157/81
--- NOTE | 2020-03-20 06:17 | NUR ---
PT SITTING IN ROOM NO NEEDS AT THIS TIME
== END 2020-03-20 06:29 | disposition home or self-care (01) ==
LOC: ED 06:27
DX: M94.0 Chondrocostal junction syndrome [Tietze] (principal); R94.31 Abnormal electrocardiogram [ECG] [EKG]
CPT/HCPCS: 71045; 93005; 99283

== ENCOUNTER 2020-04-29 02:24 | Emergency (ER) | payer MEDICARE ==
[~2020-04-29] VITALS: Ht 180.3 cm; Wt 70.5 kg
--- NOTE | 2020-04-29 02:44 | NUR ---
PT TO ED WITH MULTIPLE COMPLAINTS. REPORTS HX OF CHRONIC LUNG DISEASE. REPORTS SHORTNESS OF BREATH. ON HOME O2. 4L. REPORTS A PAIN ON LEFT RIB AREA. REPORTS DRY COUGH. REPORTS USING INHALER AT HOME. 98% ON 4L.
[2020-04-29] MEDS ORDERED: ACETAMINOPHEN 500 MG TABLET PO ONE (03:00)
[2020-04-29] MEDS ORDERED: ACETAMINOPHEN 500 MG TABLET ONE (03:12)
[2020-04-29 03:17] LABS: BASOPHILS # (AUTO) 0.04 x10^3/uL (0-0.1); BASOPHILS % (AUTO) 1 % (0-1); EOSINOPHILS # (AUTO) 0.23 x10^3/uL (0-0.4); EOSINOPHILS % (AUTO) 3 % (1-7); LYMPHOCYTES # (AUTO) 1.43 x10^3/uL (1-3.4); LYMPHOCYTES % (AUTO) 20 % (22-44); MD NO; MEAN CORPUSCULAR HEMOGLOBIN 32.4 pg (27.5-34.5); MEAN CORPUSCULAR HGB CONC 33.5 g/dL (33.2-36.2); MEAN CORPUSCULAR VOLUME 96.8 fL (81-97); MEAN PLATELET VOLUME 7.3 fL (7.4-10.4); MONOCYTES # (AUTO) 0.46 x10^3/uL (0.2-0.8); MONOCYTES % (AUTO) 6 % (2-9); NEUTROPHILS # (AUTO) 5.13 x10^3/uL (1.8-6.8); NEUTROPHILS % (AUTO) 70 % (42-75); PLATELET COUNT 229 x10^3/uL (130-400); RED BLOOD COUNT 3.84 x10^6/uL (4.38-5.82); RED CELL DISTRIBUTION WIDTH 13.7 % (9.4-14.8)
[2020-04-29 03:24] LABS: ALBUMIN 3.7 g/dL (3.4-5.0); ANION GAP 3 mmol/L (5-15); CALCIUM 9.1 mg/dL (8.5-10.1); CHLORIDE 110 mmol/L (98-107); CREATININE 1.15 mg/dL (0.7-1.3)
[2020-04-29 03:28] LABS: TROPONIN I < 0.015 ng/mL (0.000-0.045)
[2020-04-29 05:37] VITALS: BP 112/70
== END 2020-04-29 05:39 | disposition home or self-care (01) ==
LOC: ED 04:39
DX: R07.89 Other chest pain (principal); R06.02 Shortness of breath; R05 Cough; R94.31 Abnormal electrocardiogram [ECG] [EKG]; K21.9 Gastro-esophageal reflux disease without esophagitis; J44.9 Chronic obstructive pulmonary disease, unspecified; I10 Essential (primary) hypertension; F17.200 Nicotine dependence, unspecified, uncomplicated
CPT/HCPCS: 36415; 71045; 80048; 82040; 84484; 85025; 93005; 99285

== ENCOUNTER 2020-05-18 06:33 | Emergency (ER) | payer MEDICARE ==
[~2020-05-18] VITALS: Ht 180.3 cm; Wt 70.6 kg
--- NOTE | 2020-05-18 07:08 | NUR ---
PT SOB WHEN GOING TO STORE [facility]. HAS RX FOR PORTABLE 02 BUT HAS BEEN UNABLE TO GET RX FILLED. PT ON; HOME 02 4L. PT PRESENTS SOB WITH AUDIBLE WHEEZES. ON 4L NC WITH EFFECT, SP02 = 99%. LUNG SOUNDS WITH FAINT CRACKLES NOTED TO LEFT POST BASE AND EXP WHEEZES T/O. VS OTHERWISE STABLE. CALL LIGHT W/I REACH. ED PROVIDER EVAL PENDING.
--- NOTE | 2020-05-18 07:54 | NUR ---
DR LOMBARDI AT BEDSIDE. PT ASSESSMENT REV AND QUESTIONS ANSWERED. ORDERS REC'D
[2020-05-18] MEDS ORDERED: CEFTRIAXONE PMX 1GM/50ML 50 ML IVPB ONE (08:00)
[2020-05-18] MEDS ORDERED: CEFTRIAXONE PMX 1GM/50ML 50 ML ONE (08:08)
[2020-05-18 08:21] LABS: ALBUMIN 3.7 g/dL (3.4-5.0); ANION GAP 5 mmol/L (5-15); CALCIUM 9.1 mg/dL (8.5-10.1); CHLORIDE 108 mmol/L (98-107)
[2020-05-18 08:23] LABS: ALANINE AMINOTRANSFERASE 20 U/L (12-78); C-REACTIVE PROTEIN, QUANT 0.08 mg/dL (0.02-0.49); CREATININE 1.18 mg/dL (0.7-1.3)
--- NOTE | 2020-05-18 08:27 | NUR ---
IV ANTIBIOTICS INFUSING W/O DIFFICULTY. CALL LIGHT W/I REACH, NAD NOTED, VSS
[2020-05-18 08:28] LABS: ALKALINE PHOSPHATASE 67 U/L (45-117); BASOPHILS # (AUTO) 0.03 x10^3/uL (0-0.1); BASOPHILS % (AUTO) 0 % (0-1); BILIRUBIN,TOTAL 0.3 mg/dL (0.2-1.0); EOSINOPHILS # (AUTO) 0.29 x10^3/uL (0-0.4); EOSINOPHILS % (AUTO) 4 % (1-7); LYMPHOCYTES # (AUTO) 1.32 x10^3/uL (1-3.4); LYMPHOCYTES % (AUTO) 19 % (22-44); MD NO; MEAN CORPUSCULAR HEMOGLOBIN 31.7 pg (27.5-34.5); MEAN CORPUSCULAR HGB CONC 32.2 g/dL (33.2-36.2); MEAN CORPUSCULAR VOLUME 98.5 fL (81-97); MEAN PLATELET VOLUME 7.3 fL (7.4-10.4); MONOCYTES # (AUTO) 0.53 x10^3/uL (0.2-0.8); MONOCYTES % (AUTO) 8 % (2-9); NEUTROPHILS # (AUTO) 4.87 x10^3/uL (1.8-6.8); NEUTROPHILS % (AUTO) 69 % (42-75); PLATELET COUNT 220 x10^3/uL (130-400); RED BLOOD COUNT 3.78 x10^6/uL (4.38-5.82); RED CELL DISTRIBUTION WIDTH 13.8 % (9.4-14.8); TOTAL PROTEIN 6.6 g/dL (6.4-8.2)
[2020-05-18 10:12] VITALS: BP 128/53
--- NOTE | 2020-05-18 10:16 | NUR ---
SBAR RPT TO SANDRA BILLY. ALL TESTS RESULTED, CHART UP FOR RECHECK, VSS
--- NOTE | 2020-05-18 10:42 | NUR ---
With reassessment-patient complaining of chest pain Vss Emt to bedside for 12 lead ecg Provider made aware
--- NOTE | 2020-05-18 10:57 | NUR ---
UA/TROPONIN ORDERS PLACED PER VERBAL ORDER FROM DR. LOMBARDI
[2020-05-18 11:16] LABS: MICROSCOPIC NOT IND
[2020-05-18 11:23] LABS: TROPONIN I < 0.015 ng/mL (0.000-0.045)
[2020-05-18] MEDS ORDERED: OMNIPAQUE 350 MG/ML, 75ML BOTTLE ONE (11:42)
--- NOTE | 2020-05-18 13:10 | NUR ---
dr. rivers (hospitalist) to bedside. Patient expressed wish to go home. Hospitalist agreeable. Throughput rn made aware
--- NOTE | 2020-05-18 13:44 | NUR ---
Transported to discharge lounge from Er after review of home oxygen plan and removbal of piv Provided with taxi voucher as well
== END 2020-05-18 13:15 ==
LOC: ED 07:08 → UNDOADMIN 11:55 → EDIP 11:55 → ED 13:15
DX: J43.9 Emphysema, unspecified (principal); R06.00 Dyspnea, unspecified; Z20.828 Contact with and (suspected) exposure to other viral communicable diseases; R00.1 Bradycardia, unspecified; R06.02 Shortness of breath; R50.9 Fever, unspecified; R53.1 Weakness; K21.9 Gastro-esophageal reflux disease without esophagitis; I10 Essential (primary) hypertension
CPT/HCPCS: 36415; 71045; 71275; 80053; 81003; 82728; 83605; 83615; 84484; 85025; 85379; 86140; 87040; 87635; 93005; 96365; 99285; J0696; Q9967

== ENCOUNTER 2020-05-28 07:55 | Emergency (ER) | payer MEDICARE ==
[~2020-05-28] VITALS: Ht 180.3 cm; Wt 75.0 kg
--- NOTE | 2020-05-28 08:09 | NUR ---
Pt brought in by JESSICA from home for chief complaint of sob starting 3 hrs ago. Pt arrives A&O with breathing treatment administered. Per [facility] pts had audible wheezing, albuterol x2 & duoneb x1 administered ship's captain.
[2020-05-28 08:45] LABS: BASOPHILS # (AUTO) 0.07 x10^3/uL (0-0.1); BASOPHILS % (AUTO) 1 % (0-1); EOSINOPHILS # (AUTO) 0.47 x10^3/uL (0-0.4); EOSINOPHILS % (AUTO) 7 % (1-7); LYMPHOCYTES # (AUTO) 1.66 x10^3/uL (1-3.4); LYMPHOCYTES % (AUTO) 25 % (22-44); MD NO; MEAN CORPUSCULAR HEMOGLOBIN 31.6 pg (27.5-34.5); MEAN CORPUSCULAR HGB CONC 32.1 g/dL (33.2-36.2); MEAN CORPUSCULAR VOLUME 98.6 fL (81-97); MEAN PLATELET VOLUME 7.3 fL (7.4-10.4); MONOCYTES # (AUTO) 0.58 x10^3/uL (0.2-0.8); MONOCYTES % (AUTO) 9 % (2-9); NEUTROPHILS # (AUTO) 4.02 x10^3/uL (1.8-6.8); NEUTROPHILS % (AUTO) 59 % (42-75); PLATELET COUNT 203 x10^3/uL (130-400); RED BLOOD COUNT 4.03 x10^6/uL (4.38-5.82); RED CELL DISTRIBUTION WIDTH 14.3 % (9.4-14.8)
[2020-05-28 08:56] LABS: ALANINE AMINOTRANSFERASE 23 U/L (12-78); ALBUMIN 4.3 g/dL (3.4-5.0); ANION GAP 3 mmol/L (5-15); CALCIUM 9.5 mg/dL (8.5-10.1); CHLORIDE 108 mmol/L (98-107)
[2020-05-28] MEDS ORDERED: methylPREDNISolone SOD SUCC 125 MG/2 ML IVPush ONE (09:00)
--- NOTE | 2020-05-28 09:00 | NUR ---
pt resting in bed, call light in reach.
[2020-05-28 09:01] LABS: ALKALINE PHOSPHATASE 74 U/L (45-117); BILIRUBIN,TOTAL 0.5 mg/dL (0.2-1.0); CREATININE 1.21 mg/dL (0.7-1.3); TOTAL PROTEIN 7.1 g/dL (6.4-8.2); TROPONIN I < 0.015 ng/mL (0.000-0.045)
[2020-05-28] MEDS ORDERED: methylPREDNISolone SOD SUCC 125 MG/2 ML ONE (09:40)
--- NOTE | 2020-05-28 10:07 | NUR ---
GRAZYNA Meléndez at bedside to discuss POC. snacks provided.
--- NOTE | 2020-05-28 11:04 | NUR ---
Pt resting in bed, call light in reach. VSS
--- NOTE | 2020-05-28 11:33 | NUR ---
ERMD at bedside for evaluation.
[2020-05-28] MEDS ORDERED: ALBUTEROL HFA 90 MCG/SPRAY INH PRN (12:00)
[2020-05-28 12:38] VITALS: BP 108/55
--- NOTE | 2020-05-28 12:41 | NUR ---
DISCHARGE INSTRUCTIONS REVIEWED
== END 2020-05-28 13:00 | disposition home or self-care (01) ==
LOC: ED 08:33
DX: J44.1 Chronic obstructive pulmonary disease with (acute) exacerbation (principal); R00.0 Tachycardia, unspecified; K21.9 Gastro-esophageal reflux disease without esophagitis; I10 Essential (primary) hypertension; J44.9 Chronic obstructive pulmonary disease, unspecified; F17.210 Nicotine dependence, cigarettes, uncomplicated
CPT/HCPCS: 36415; 71045; 80053; 83880; 84484; 85025; 93005; 96374; 99285; J2930

== ENCOUNTER 2020-07-27 09:29 | Inpatient (IN) | payer MEDICAID, MEDICARE ==
[~2020-07-27] VITALS: Ht 177.8 cm; Wt 66.7 kg
--- NOTE | 2020-07-27 09:57 | NUR ---
TASK RN NOTE: PT SITTING UP IN BED, ERMD IN TO ASSESS PT, CXR COMPLETED. NAD NOTED IN PT AT THIS TIME, NO WOB NOTED. SATURATING WELL ON 4L NC WHICH IS PT'S RA. PT C/O SLIGHT PAIN WHERE CRACKED RIBS WERE WITH DEEP BREATH. DENIES PAIN ON PALPATION. VSS. PT IN GOWN, BLANKET ON AND SIDE RAILS UP, CALL LIGHT IN REACH. REPORT TO PRIMARY RNSAKSHI.
--- NOTE | 2020-07-27 09:57 | NUR ---
RECEIVED REPORT FROM SHAISTA FLORES. CARE ASSUMED AT THIS TIME. TOWBOAT OPERATOR AT BEDSIDE FOR EKG. PT A&OX4. NAD NOTED. VSS. TO MEDICATE PER MD ORDER. CALL LIGHT IN REACH. FALL PRECUATIONS IN PLACE. DENIES NEED TO USE RESTROOM.
[2020-07-27] MEDS ORDERED: methylPREDNISolone SOD SUCC 125 MG/2 ML IV ONE (10:00)
[2020-07-27 10:03] LABS: BASOPHILS # (AUTO) 0.06 x10^3/uL (0-0.1); BASOPHILS % (AUTO) 1 % (0-1); EOSINOPHILS # (AUTO) 0.16 x10^3/uL (0-0.4); EOSINOPHILS % (AUTO) 2 % (1-7); LYMPHOCYTES # (AUTO) 1.43 x10^3/uL (1-3.4); LYMPHOCYTES % (AUTO) 20 % (22-44); MD NO; MEAN CORPUSCULAR HEMOGLOBIN 32.2 pg (27.5-34.5); MEAN CORPUSCULAR VOLUME 97.6 fL (81-97); MEAN PLATELET VOLUME 7.5 fL (7.4-10.4); MONOCYTES # (AUTO) 0.58 x10^3/uL (0.2-0.8); MONOCYTES % (AUTO) 8 % (2-9); NEUTROPHILS % (AUTO) 69 % (42-75); PLATELET COUNT 218 x10^3/uL (130-400); RED BLOOD COUNT 4.01 x10^6/uL (4.38-5.82); RED CELL DISTRIBUTION WIDTH 14.3 % (9.4-14.8)
--- NOTE | 2020-07-27 10:09 | NUR ---
PT MEDICATED NOTED IN EMAR PER MD ORDER. PT RESTING COMFORTABLY. DENIES NEED TO USE RESTROOM. REFUSES NEED FOR PAIN MEDICATION. RATES PAIN 1/10 "WHEN I TAKE A DEEP BREATH IN, PAIN IN MY RIBS WHERE I BROKE THEM." CALL LIGHT IN REACH. FALL PRECUATIONS IN PLACE. AWAITING LAB RESULTS.
[2020-07-27 10:16] LABS: ALANINE AMINOTRANSFERASE 15 U/L (12-78); ALBUMIN 3.8 g/dL (3.4-5.0); ANION GAP 6 mmol/L (5-15); CALCIUM 9.4 mg/dL (8.5-10.1); CHLORIDE 110 mmol/L (98-107); CREATININE 1.23 mg/dL (0.7-1.3)
[2020-07-27 10:20] LABS: ALKALINE PHOSPHATASE 71 U/L (45-117); BILIRUBIN,TOTAL 0.4 mg/dL (0.2-1.0); TOTAL PROTEIN 6.7 g/dL (6.4-8.2); TROPONIN I < 0.015 ng/mL (0.000-0.045)
--- NOTE | 2020-07-27 10:24 | NUR ---
CONTINUE AWAITING LAB RESULTS TO POST
--- NOTE | 2020-07-27 11:15 | NUR ---
DR. ZAYAS AT BEDSIDE FOR RECHECK, DISCUSSING POC.
--- NOTE | 2020-07-27 11:39 | NUR ---
PT REQUESTING TO USE URINAL, ASSISTED WITH URINAL AND THEN STATES "I ACTUALLY DON'T THINK I NEED TO GO, HAD URGE BUT IT'S GONE." URINAL LEFT AT BEDSIDE PER REQUEST, TO CALL CELERY TIER LIGHT IN LAP WHEN URGE RETURNS. IV PLACED. AWAITING CTA. PT UPDATED ON POC BY DR. ZAYAS, TO BE ADMIT, AGREES TO POC. RESTING COMFORTABLY WITH WARM BLANKETS. CALL LIGHT IN REACH. FALL PRECUATIONS IN PLACE. VSS.
[2020-07-27] MEDS ORDERED: ALBUTEROL HFA 90 MCG/SPRAY INH PRN (12:30)
--- NOTE | 2020-07-27 12:50 | NUR ---
CONTINUE AWAITING CTA, CT CALLED, TO COME TAKE PT FOR EXAM. PT RESTING COMFORTABLY. DENIES NEED TO USE RESTROOM AND REPORTS "RIB PAIN WITH BREATHING IS LIKE -12/16." REFUSES NEED FOR PAIN MEDICATION. CALL LIGHT IN REACH. FALL PRECUATIONS IN PLACE. VSS.
--- NOTE | 2020-07-27 13:14 | NUR ---
PT TO CT
[2020-07-27] MEDS ORDERED: OMNIPAQUE 350 MG/ML, 75ML BOTTLE ONE (13:37)
--- NOTE | 2020-07-27 13:37 | NUR ---
PT BACK FROM CT. NAD NOTED. VSS. ALL NEEDS MET AND ADDRESSED. CALL LIGHT IN REACH. FALL PRECAUTIONS
--- NOTE | 2020-07-27 14:16 | NUR ---
DR. ZAYAS DISCUSSED TEST RESULTS AND ADMISSION WITH PT, AWARE, VERBALIZED UNDERSTANDING, AGREES TO POC. VSS. DENIES NEED TO USE RESTROOM, AWAITING ROOM ON FLOOR. FALL PRECAUTIONS IN PLACE. CALL LIGHT IN REACH
--- NOTE | 2020-07-27 14:37 | NUR ---
ROOM 511-1 RECEIVED, ATTEMPTED TO GIVE REPORT TO HUY FLORES X1
--- NOTE | 2020-07-27 14:46 | NUR ---
ATTEMPTED TO CALL REPORTX2 TO HUY FLORES, UNAVAILABLE TO CALL THIS RN BACK
--- NOTE | 2020-07-27 14:52 | NUR ---
REPORT GIVEN TO BLANE FLORES.
[2020-07-27 16:18] VITALS: BP 134/70
[2020-07-27] MEDS ORDERED: ASPI-515 PO (16:25)
[2020-07-27] MEDS ORDERED: ENOXAPARIN 40 MG/0.4 ML SQ SCH (17:30)
[2020-07-27] MEDS ORDERED: ACETAMINOPHEN 325 MG TABLET PO PRN (17:30)
[2020-07-27] MEDS ORDERED: ONDANSETRON ODT 4 MG PO PRN (17:30)
[2020-07-27] MEDS ORDERED: ONDANSETRON 2MG/ML, 2ML IVPush PRN (17:30)
[2020-07-27] MEDS ORDERED: ENALAPRILAT 1.25 MG/ML, 2ML IVPush PRN (17:30)
[2020-07-27] MEDS ORDERED: ALBUTEROL/IPRATROPIUM 2.5MG/0.5MG, 3 ML NPPB PRN (17:30)
[2020-07-27] MEDS ORDERED: POLYETHYLENE GLYCOL 17 GM PACKET PO PRN (17:30)
[2020-07-27] MEDS ORDERED: morphine SULFATE 10 MG/ML, 1ML IVPush PRN (17:30)
[2020-07-27] MEDS ORDERED: TEMAZEPAM 15 MG CAPSULE PO PRN (17:30)
[2020-07-27] MEDS ORDERED: BISACODYL 10 MG SUPP PR PRN (17:30)
[2020-07-27] MEDS ORDERED: LACTATED RINGERS 1,000 ML IV SCH (17:30)
[2020-07-27 18:16] LABS: TROPONIN I < 0.015 ng/mL (0.000-0.045)
[2020-07-27 20:23] VITALS: BP 112/68
[2020-07-27] MEDS: PANTOPRAZOLE 40MG TABLET PO SCH (20:52)
[2020-07-27] MEDS: ALBUTEROL HFA 90 MCG/SPRAY INH SCH (21:00)
[2020-07-27 21:37] LABS: MICROSCOPIC NOT IND
[2020-07-27 23:34] LABS: TROPONIN I < 0.015 ng/mL (0.000-0.045)
[2020-07-28 01:22] VITALS: BP 111/64
[2020-07-28 05:29] LABS: CALCIUM 9.1 mg/dL (8.5-10.1); CHLORIDE 111 mmol/L (98-107)
[2020-07-28 05:40] LABS: ALANINE AMINOTRANSFERASE 14 U/L (12-78); ALBUMIN 3.4 g/dL (3.4-5.0); ALKALINE PHOSPHATASE 67 U/L (45-117); ANION GAP 6 mmol/L (5-15); BASOPHILS % (AUTO) 0 % (0-1); BILIRUBIN,TOTAL 0.4 mg/dL (0.2-1.0); CHOL/HDL RATIO 4.3; CHOLESTEROL, TOTAL 219 mg/dL (140-239); CREATININE 1.06 mg/dL (0.7-1.3); EOSINOPHILS # (AUTO) 0.03 x10^3/uL (0-0.4); EOSINOPHILS % (AUTO) 0 % (1-7); HDL CHOL % 23 % (26-37); HDL CHOLESTEROL (DIRECT) 51 mg/dL (40-60); LDL CHOLESTEROL,CALCULATED 159 mg/dL (54-169); LDL/HDL RATIO 3.1 (0.5-3.0); LYMPHOCYTES # (AUTO) 1.25 x10^3/uL (1-3.4); LYMPHOCYTES % (AUTO) 13 % (22-44); MD NO; MEAN CORPUSCULAR HEMOGLOBIN 31.6 pg (27.5-34.5); MEAN CORPUSCULAR HGB CONC 32.1 g/dL (33.2-36.2); MEAN CORPUSCULAR VOLUME 98.4 fL (81-97); MEAN PLATELET VOLUME 7.9 fL (7.4-10.4); MONOCYTES # (AUTO) 0.63 x10^3/uL (0.2-0.8); MONOCYTES % (AUTO) 7 % (2-9); NEUTROPHILS # (AUTO) 7.63 x10^3/uL (1.8-6.8); NEUTROPHILS % (AUTO) 80 % (42-75); PLATELET COUNT 221 x10^3/uL (130-400); RED CELL DISTRIBUTION WIDTH 14.6 % (9.4-14.8); TOTAL PROTEIN 6.1 g/dL (6.4-8.2); TRIGLYCERIDES 47 mg/dL (50-200); VLDL CHOLESTEROL 9 mg/dL (0-25)
[2020-07-28] MEDS ORDERED: ASPIRIN 325 MG TABLET EC PO SCH (06:00)
[2020-07-28 07:29] VITALS: BP 116/64
[2020-07-28] MEDS: ALBUTEROL HFA 90 MCG/SPRAY INH SCH (08:00)
[2020-07-28] MEDS ORDERED: REGADENOSON 0.4 MG/5 ML SYRINGE ONE (08:55)
[2020-07-28] MEDS ORDERED: SENNA/DOCUSATE TABLET PO SCH (09:00)
[2020-07-28] MEDS: PANTOPRAZOLE 40MG TABLET PO SCH (11:01)
[2020-07-28 13:02] VITALS: BP 111/63
[2020-07-28] MEDS ORDERED: UMEC1DIS IH (14:34)
[2020-07-28] MEDS ORDERED: ALBU18HF INH (14:35)
== END 2020-07-28 16:20 | disposition home or self-care (01) | DRG 313 ==
LOC: ED 10:51 → EDIP 14:02 → 5SO 15:16 → DCLOUNGE 07-28 16:07
PROVIDERS: ADMIT Internal Medicine; ATTEND Internal Medicine
DX: R07.9 Chest pain, unspecified (principal); J96.10 Chronic respiratory failure, unspecified whether with hypoxia or hypercapnia; J43.9 Emphysema, unspecified; F17.200 Nicotine dependence, unspecified, uncomplicated; F51.04 Psychophysiologic insomnia; I10 Essential (primary) hypertension; K21.9 Gastro-esophageal reflux disease without esophagitis; Z85.46 Personal history of malignant neoplasm of prostate; Z90.79 Acquired absence of other genital organ(s); Z99.81 Dependence on supplemental oxygen
CPT/HCPCS: 36415; 71045; 71275; 78452; 80053; 80061; 81003; 83605; 83735; 84145; 84443; 84484; 85025; 93005; 93017; 94640; 94664; 99285; G0378; J1650; J2785; Q9967; A9502; C9898; J7120; J7512

== ENCOUNTER 2020-08-20 08:27 | Emergency (ER) | payer MEDICARE, MEDICAID ==
[~2020-08-20] VITALS: Ht 180.3 cm; Wt 65.9 kg
[~2020-08-20 08:27] MED LIST changes: +UMEC1DIS IH
[2020-08-20 09:01] VITALS: BP 153/90
--- NOTE | 2020-08-20 09:02 | NUR ---
PT SITTING UPRIGHT ON ISHAAN CHRISTINE NOTED. PT DENIES ANY NEEDS AT THIS TIME. FALL PRECAUTIONS IN PLACE CALL LIGHT WITHIN REACH.
--- NOTE | 2020-08-20 09:06 | NUR ---
Patient given discharge instructions and they have confirmed that they understand the instructions. Patient ambulatory with steady gait.
== END 2020-08-20 09:26 | disposition home or self-care (01) ==
LOC: ED 08:57
DX: J44.9 Chronic obstructive pulmonary disease, unspecified (principal); F17.210 Nicotine dependence, cigarettes, uncomplicated; Z76.0 Encounter for issue of repeat prescription; Z85.46 Personal history of malignant neoplasm of prostate
CPT/HCPCS: 99281

== ENCOUNTER 2020-09-07 19:33 | Emergency (ER) | payer MEDICAID, MEDICARE ==
[~2020-09-07] VITALS: Ht 180.3 cm; Wt 73.0 kg
[2020-09-07 22:35] VITALS: BP 117/50
== END 2020-09-07 23:02 | disposition home or self-care (01) ==
LOC: ED 21:52
DX: R06.00 Dyspnea, unspecified (principal); R06.02 Shortness of breath; I10 Essential (primary) hypertension; K21.9 Gastro-esophageal reflux disease without esophagitis; J43.9 Emphysema, unspecified; Z90.49 Acquired absence of other specified parts of digestive tract; Z85.46 Personal history of malignant neoplasm of prostate; R07.9 Chest pain, unspecified
CPT/HCPCS: 71046; 93005; 99285

== ENCOUNTER 2020-09-22 09:27 | Emergency (ER) | payer MEDICARE ==
[~2020-09-22] VITALS: Ht 180.3 cm; Wt 66.0 kg
[2020-09-22] MEDS ORDERED: ACETAMINOPHEN 500 MG TABLET ONE (10:28)
[2020-09-22] MEDS ORDERED: ACETAMINOPHEN 500 MG TABLET PO ONE (10:30)
--- NOTE | 2020-09-22 10:37 | NUR ---
PT MEDICATED PER JAN. ABD SURGICAL STERI STRIPS IN PLACE, NO SUTURES IN PLACE. WILL LEAVE STERI STRIPS IS. NO OTHER NEEDS
[2020-09-22 11:39] VITALS: BP 138/62
== END 2020-09-22 11:44 | disposition home or self-care (01) ==
LOC: ED 11:34
DX: S20.211A Contusion of right front wall of thorax, initial encounter (principal); J44.9 Chronic obstructive pulmonary disease, unspecified; I10 Essential (primary) hypertension; K21.9 Gastro-esophageal reflux disease without esophagitis; Z90.49 Acquired absence of other specified parts of digestive tract; F17.200 Nicotine dependence, unspecified, uncomplicated; Z85.46 Personal history of malignant neoplasm of prostate; X58.XXXA Exposure to other specified factors, initial encounter; Y93.89 Activity, other specified; Y92.89 Other specified places as the place of occurrence of the external cause; Y99.8 Other external cause status
CPT/HCPCS: 71045; 99283

== ENCOUNTER 2020-11-11 02:10 | Emergency (ER) | payer MEDICARE ==
[~2020-11-11] VITALS: Ht 170.2 cm; Wt 75.0 kg
[~2020-11-11 02:10] MED LIST changes: -ASPI-515 PO; +ASPI-963 PO
[2020-11-11] MEDS ORDERED: methylPREDNISolone SOD SUCC 125 MG/2 ML IV ONE (02:30)
[2020-11-11] MEDS ORDERED: ALBUTEROL/IPRATROPIUM 2.5MG/0.5MG, 3 ML NPPB ONE (02:30)
[2020-11-11] MEDS ORDERED: methylPREDNISolone SOD SUCC 125 MG/2 ML ONE (02:43)
[2020-11-11] MEDS ORDERED: ALBUTEROL/IPRATROPIUM 2.5MG/0.5MG, 3 ML ONE (02:57)
--- NOTE | 2020-11-11 03:07 | NUR ---
pt back from xray, medicated per emar, provided blanket per request. no other needs at this time
[2020-11-11] MEDS ORDERED: ALBUTEROL HFA 90 MCG/SPRAY INH PRN (03:30)
[2020-11-11 03:37] VITALS: BP 122/63
[2020-12-23] MEDS ORDERED: ACID1TAB7 PO (09:33)
[2020-12-23] MEDS ORDERED: TIOT18CA INH (09:33)
== END 2020-11-11 04:26 | disposition home or self-care (01) ==
LOC: ED 03:00
DX: J44.1 Chronic obstructive pulmonary disease with (acute) exacerbation (principal); R07.89 Other chest pain; R06.02 Shortness of breath; R94.31 Abnormal electrocardiogram [ECG] [EKG]; F17.210 Nicotine dependence, cigarettes, uncomplicated; I10 Essential (primary) hypertension; K21.9 Gastro-esophageal reflux disease without esophagitis; Z90.49 Acquired absence of other specified parts of digestive tract; Z85.46 Personal history of malignant neoplasm of prostate
CPT/HCPCS: 71046; 93005; 94640; 96374; 99284; 99406; J2930; 99283

== ENCOUNTER 2021-01-02 04:09 | Emergency (ER) | payer MEDICARE ==
[~2021-01-02] VITALS: Ht 180.3 cm; Wt 75.0 kg
[~2021-01-02 04:09] MED LIST changes: +ACID1TAB7 PO; +TIOT18CA INH
--- NOTE | 2021-01-02 04:34 | NUR ---
THIS IS A 80M BIB EMS FOR RLQ PAIN STARTING A COUPLE DAYS AGO DENIES N/V/D. PT DENIES TRAUMA/ ANY ABD SURGERIES. PT ARRIVED TO ED WITH EMS. UNABLE TO AMBULATE THROUGH ED D/T NOT HAVING HIS HOME O2 HOWEVER PT ARRIVED WITH OWN INCENTIVE SPIROMETER. PT CONNECTED TO ALL MONITORING, VSS, O2 SAT 98-99% ON 2LNC. NO NEEDS AT THIS TIME
--- NOTE | 2021-01-02 04:35 | NUR ---
PT EDUCATED ON NEED FOR URINE SAMPLE, ENCOURAGED TO PROVIDE ONE AND GIVEN A URINAL.
[2021-01-02 05:00] LABS: BASOPHILS % (AUTO) 1 % (0-1); EOSINOPHILS % (AUTO) 6 % (1-7); LYMPHOCYTES % (AUTO) 20 % (22-44); MEAN CORPUSCULAR HEMOGLOBIN 31.8 pg (27.5-34.5); MEAN CORPUSCULAR HGB CONC 33.8 g/dL (33.2-36.2); MEAN PLATELET VOLUME 7.3 fL (7.4-10.4); MONOCYTES % (AUTO) 9 % (2-9); NEUTROPHILS % (AUTO) 64 % (42-75); PLATELET COUNT 228 x10^3/uL (130-400); RED BLOOD COUNT 4.21 x10^6/uL (4.38-5.82); RED CELL DISTRIBUTION WIDTH 14.1 % (9.4-14.8)
[2021-01-02] MEDS ORDERED: ONDANSETRON 2MG/ML, 2ML IVPush ONE (05:00)
[2021-01-02] MEDS ORDERED: MORPHINE SULFATE 4 MG/ML, 1ML IVPush PRN (05:00)
[2021-01-02 05:02] LABS: MD NO
--- NOTE | 2021-01-02 05:04 | NUR ---
PT IN IMAGING AT THIS TIME
[2021-01-02 05:05] LABS: ALANINE AMINOTRANSFERASE 34 U/L (12-78); ALBUMIN 3.6 g/dL (3.4-5.0); ANION GAP 6 mmol/L (5-15); CALCIUM 9.1 mg/dL (8.5-10.1); CHLORIDE 110 mmol/L (98-107); CREATININE 1.12 mg/dL (0.7-1.3)
[2021-01-02 05:07] LABS: ALKALINE PHOSPHATASE 87 U/L (45-117); BILIRUBIN,TOTAL 0.4 mg/dL (0.2-1.0)
--- NOTE | 2021-01-02 05:39 | NUR ---
PT BACK FROM US AT THIS TIME
[2021-01-02] MEDS ORDERED: ONDANSETRON 2MG/ML, 2ML ONE (05:40)
[2021-01-02] MEDS ORDERED: MORPHINE SULFATE 4 MG/ML, 1ML ONE (05:40)
--- NOTE | 2021-01-02 06:52 | NUR ---
BEDSIDE REPORT FROM SAKSHI FLORESSEO INTERN OF CARE AT THIS TIME. PT RESTING ON GURNEY WITH WATER AWAITING URINE SAMPLE
[2021-01-02] MEDS ORDERED: FAMOTIDINE 20 MG/2 ML IVPush ONE (07:00)
[2021-01-02] MEDS ORDERED: ALUMINUM/MAG/SIMETHICONE 30 ML UDC PO PRN (07:00)
--- NOTE | 2021-01-02 07:03 | NUR ---
Brandon resendiz in ED - 01/02/21 at 0706 by SEAN TAXI VOUCHER GIVEN, PATIENT DISCHARGE REVIEWED. PATIENT STATES FEELS IMPROVED
[2021-01-02] MEDS ORDERED: FAMOTIDINE 20 MG/2 ML ONE (07:09)
[2021-01-02 07:11] VITALS: BP 128/57
--- NOTE | 2021-01-02 07:11 | NUR ---
REPORT FROM BONNIE FLORES
--- NOTE | 2021-01-02 07:16 | NUR ---
PT CONTINUES TO JOAQUIN DOWN INTO THE UPPER 40'S MD AWARE. PT IS NOT SYMPTOMATIC AT THIS TIME. HE IS RESTING IN BED WATCHING TV AWAITING DISPOSITION. MEDICATED PER EMAR. CALL LIGHT WITHIN REACH. NO FURTHER NEEDS.
[2021-01-02 07:51] LABS: MICROSCOPIC NOT IND
== END 2021-01-02 08:58 | disposition home or self-care (01) ==
LOC: ED 05:55
DX: K29.00 Acute gastritis without bleeding (principal); I10 Essential (primary) hypertension; J43.9 Emphysema, unspecified; K21.9 Gastro-esophageal reflux disease without esophagitis
CPT/HCPCS: 36415; 76700; 80053; 81003; 83690; 85025; 96374; 96375; 99284; J2270; J2405

== ENCOUNTER 2021-01-04 07:50 | Emergency (ER) | payer MEDICARE ==
[~2021-01-04] VITALS: Ht 180.3 cm; Wt 77.5 kg
--- NOTE | 2021-01-04 07:55 | NUR ---
pt BIB [facility] from home c/o s/o SOB upon waking up. pt has a hx of COPD and is still a smoker. per report pt had an albuterol breathing Tx fruit room hand and reports feeling better. pt s A&O x4. states that he feels weak and tired. speaking full sentences. +weak cough. no family at bedside
--- NOTE | 2021-01-04 08:05 | NUR ---
EKG has been to bedside. Stephen FOX has been to bedside for eval
--- NOTE | 2021-01-04 08:21 | NUR ---
CXR has been to bedside. lab at bedside to draw
[2021-01-04] MEDS ORDERED: SODIUM CHLORIDE FLUSH 10ML SYR IVF ONE (08:30)
[2021-01-04] MEDS ORDERED: DEXAMETHASONE 4 MG/ML, 1ML IVPush ONE (08:30)
[2021-01-04 08:31] LABS: BASOPHILS % (AUTO) 2 % (0-1); EOSINOPHILS % (AUTO) 7 % (1-7); LYMPHOCYTES % (AUTO) 28 % (22-44); MEAN CORPUSCULAR HEMOGLOBIN 31.9 pg (27.5-34.5); MEAN CORPUSCULAR HGB CONC 33.5 g/dL (33.2-36.2); MEAN PLATELET VOLUME 7.3 fL (7.4-10.4); MONOCYTES % (AUTO) 10 % (2-9); NEUTROPHILS % (AUTO) 53 % (42-75); PLATELET COUNT 211 x10^3/uL (130-400); RED BLOOD COUNT 4.01 x10^6/uL (4.38-5.82); RED CELL DISTRIBUTION WIDTH 14.1 % (9.4-14.8)
[2021-01-04 08:41] LABS: ALBUMIN 3.6 g/dL (3.4-5.0); ANION GAP 5 mmol/L (5-15); CALCIUM 9.1 mg/dL (8.5-10.1); CHLORIDE 107 mmol/L (98-107); CREATININE 1.29 mg/dL (0.7-1.3); MD NO
[2021-01-04 08:44] LABS: TROPONIN I < 0.015 ng/mL (0.000-0.045)
[2021-01-04] MEDS ORDERED: DEXAMETHASONE 4 MG/ML, 1ML ONE (08:52)
[2021-01-04 10:16] VITALS: BP 133/69
== END 2021-01-04 10:21 | disposition home or self-care (01) ==
LOC: ED 08:33
DX: J44.1 Chronic obstructive pulmonary disease with (acute) exacerbation (principal); R06.02 Shortness of breath; K21.9 Gastro-esophageal reflux disease without esophagitis; I10 Essential (primary) hypertension
CPT/HCPCS: 36415; 71045; 80048; 82040; 84484; 85025; 93005; 96374; 99285; J1100

== ENCOUNTER 2021-01-21 09:38 | Emergency (ER) | payer MEDICARE ==
[~2021-01-21] VITALS: Ht 180.3 cm; Wt 69.1 kg
[2021-01-21] MEDS ORDERED: NITROGLYCERIN SINGLE TAB 0.4 MG SL ONE (10:00)
[2021-01-21] MEDS ORDERED: ASPIRIN 81 MG TABLET CHEW PO ONE (10:00)
[2021-01-21] MEDS ORDERED: NITROGLYCERIN SINGLE TAB 0.4 MG SL PRN (10:00)
[2021-01-21] MEDS ORDERED: ASPIRIN 81 MG TABLET CHEW ONE (10:00)
[2021-01-21 10:20] LABS: BASOPHILS % (AUTO) 1 % (0-1); EOSINOPHILS % (AUTO) 3 % (1-7); LYMPHOCYTES % (AUTO) 12 % (22-44); MD NO; MEAN CORPUSCULAR HEMOGLOBIN 31.9 pg (27.5-34.5); MEAN CORPUSCULAR HGB CONC 33.7 g/dL (33.2-36.2); MEAN PLATELET VOLUME 7.2 fL (7.4-10.4); MONOCYTES % (AUTO) 7 % (2-9); NEUTROPHILS % (AUTO) 77 % (42-75); PLATELET COUNT 236 x10^3/uL (130-400); RED CELL DISTRIBUTION WIDTH 14.8 % (9.4-14.8)
[2021-01-21 10:33] LABS: ALANINE AMINOTRANSFERASE 24 U/L (12-78); ALBUMIN 3.8 g/dL (3.4-5.0); ANION GAP 4 mmol/L (5-15); CALCIUM 9.4 mg/dL (8.5-10.1); CHLORIDE 107 mmol/L (98-107); CREATININE 1.13 mg/dL (0.7-1.3)
[2021-01-21 10:35] LABS: INTERNATIONAL NORMALIZED RATIO 1.01 (0.93-1.1); PROTHROMBIN TIME 10.8 Seconds (9.6-11.5)
[2021-01-21 10:37] LABS: ALKALINE PHOSPHATASE 82 U/L (45-117); BILIRUBIN,TOTAL 0.3 mg/dL (0.2-1.0); TOTAL PROTEIN 6.9 g/dL (6.4-8.2); TROPONIN I < 0.015 ng/mL (0.000-0.045)
[2021-01-21 12:26] LABS: TROPONIN I < 0.015 ng/mL (0.000-0.045)
--- NOTE | 2021-01-21 13:29 | NUR ---
PT REC'VD DISCHARGE INSTRUCTIONS AND EDUCATION. PT HAD NO FURTHER QUESTIONS.
--- NOTE | 2021-01-21 13:32 | NUR ---
PT AMBULATED TO LA AREA, STEADY GAIT.
[2021-01-21] MEDS ORDERED: ALBUTEROL/IPRATROPIUM 2.5MG/0.5MG, 3 ML NPPB PRN (14:00)
--- NOTE | 2021-01-21 14:00 | NUR ---
PT STARTED EXPERIENCING SOB WHILE WAITING FOR TAXI IN DISCHARGE AREA. PT ASSISTED BACK TO ROOM WITH RN AND MD MCGARRY. PT PLACED BACK ON O2 AND MONITORS.
[2021-01-21] MEDS ORDERED: ALBUTEROL/IPRATROPIUM 2.5MG/0.5MG, 3 ML ONE (14:12)
--- NOTE | 2021-01-21 14:18 | NUR ---
PT RESTING IN [facility], MONITORING IN PLACE, NADN AT THIS TIME, PT MEDICATED PER ZE DUNHAM. AT BEDSIDE TO UPDATE PT ON POC AND DISCHARGE INSTRUCTIONS.
[2021-01-21 14:54] VITALS: BP 117/63
== END 2021-01-21 15:23 | disposition home or self-care (01) ==
LOC: ED 10:04
DX: R07.2 Precordial pain (principal); J44.1 Chronic obstructive pulmonary disease with (acute) exacerbation; I10 Essential (primary) hypertension; R94.31 Abnormal electrocardiogram [ECG] [EKG]
CPT/HCPCS: 36415; 71045; 80053; 83690; 83880; 84484; 85025; 85610; 93005; 94640

== ENCOUNTER 2021-01-22 05:03 | Emergency (ER) | payer MEDICARE ==
[~2021-01-22] VITALS: Ht 182.9 cm; Wt 80.0 kg
--- NOTE | 2021-01-22 05:03 | NUR ---
INITIAL PT CONTACT. PT TIMOTHY C/O SOB, SEEN HERE YESTERDAY FOR SAME. PT ON 4L O2 CHRONICALLY. DUO NEB EN ROUTE, PT STATES "I FEEL BETTER AFTER THAT THING BUT STILL NOT GREAT". PT SITTING UPRIGHT ON ED DALL[place] CHRISTINE VSS. PT PLACED ON CONTINUOUS PULSE OX AND CARDIAC MONITORING. PT PROVIDED WARM BLANKET. CALL LIGHT AND PERSONAL BELONGINGS WITHIN REACH. AWAITING ERP.
--- NOTE | 2021-01-22 05:05 | NUR ---
PT SPEAKING IN FULL SENTENCES, NO RESPRIATORY DISTRESS NOTED. RESPIRATION EQUAL AND UNLABORED.
--- NOTE | 2021-01-22 05:16 | NUR ---
ERP AT BEDSIDE
[2021-01-22] MEDS ORDERED: ALBUTEROL/IPRATROPIUM 2.5MG/0.5MG, 3 ML ONE (05:22)
--- NOTE | 2021-01-22 05:25 | NUR ---
XRAY AT BEDSIDE
[2021-01-22] MEDS ORDERED: ALBUTEROL/IPRATROPIUM 2.5MG/0.5MG, 3 ML NPPB ONE (05:30)
[2021-01-22 06:13] LABS: BASOPHILS % (AUTO) 1 % (0-1); EOSINOPHILS % (AUTO) 4 % (1-7); LYMPHOCYTES % (AUTO) 22 % (22-44); MEAN CORPUSCULAR HEMOGLOBIN 31.9 pg (27.5-34.5); MEAN CORPUSCULAR HGB CONC 33.7 g/dL (33.2-36.2); MEAN PLATELET VOLUME 7.5 fL (7.4-10.4); MONOCYTES % (AUTO) 9 % (2-9); NEUTROPHILS % (AUTO) 64 % (42-75); PLATELET COUNT 235 x10^3/uL (130-400); RED BLOOD COUNT 3.88 x10^6/uL (4.38-5.82); RED CELL DISTRIBUTION WIDTH 15.3 % (9.4-14.8)
[2021-01-22 06:23] LABS: ALBUMIN 3.4 g/dL (3.4-5.0); ANION GAP 3 mmol/L (5-15); CALCIUM 8.6 mg/dL (8.5-10.1); CHLORIDE 110 mmol/L (98-107)
[2021-01-22 06:23] LABS: MD NO
[2021-01-22 06:29] LABS: ALANINE AMINOTRANSFERASE 25 U/L (12-78); ALKALINE PHOSPHATASE 79 U/L (45-117); BILIRUBIN,TOTAL 0.3 mg/dL (0.2-1.0); CREATININE 1.12 mg/dL (0.7-1.3); TOTAL PROTEIN 6.3 g/dL (6.4-8.2); TROPONIN I < 0.015 ng/mL (0.000-0.045)
--- NOTE | 2021-01-22 06:54 | NUR ---
REPORT TO AAMIR FLORES
--- NOTE | 2021-01-22 07:38 | NUR ---
PT REC'VD DISCHARGE INSTRUCTIONS AND EDUCATION. PT HAD NO QUESTIONS. PT WAITING FOR [facility] FOR DISCHARGE HOME.
[2021-01-22 11:07] VITALS: BP 135/63
--- NOTE | 2021-01-22 11:36 | NUR ---
[facility] PLACED PT IN WHEELCHAIR AND PT WHEELED TO DISCHARGE.
== END 2021-01-22 11:38 | disposition home or self-care (01) ==
LOC: ED 05:32
DX: J44.1 Chronic obstructive pulmonary disease with (acute) exacerbation (principal); I10 Essential (primary) hypertension; K21.9 Gastro-esophageal reflux disease without esophagitis; R00.1 Bradycardia, unspecified; R06.02 Shortness of breath; R06.00 Dyspnea, unspecified; F17.200 Nicotine dependence, unspecified, uncomplicated; Z72.9 Problem related to lifestyle, unspecified; Z85.46 Personal history of malignant neoplasm of prostate; Z90.49 Acquired absence of other specified parts of digestive tract
CPT/HCPCS: 36415; 71045; 80053; 83880; 84145; 84484; 85025; 93005; 94640; 99285; J7512

== ENCOUNTER 2021-02-03 07:40 | Emergency (ER) | payer MEDICARE ==
[~2021-02-03] VITALS: Ht 177.8 cm; Wt 76.0 kg
[~2021-02-03 07:40] MED LIST changes: +CEFD300C37 PO; +FLUT1AER INH
--- NOTE | 2021-02-03 08:01 | NUR ---
pt bib by ems with signigicant hx of 02 dependent copd, pt states "he ran out of his medication" and "my beathing just went bad" when ems picked up pt spo2 79%. Dr. Ferguson at [facility] for evaluation. pt was recently discharged home with po antibiotics and steriods. attached to all monitors, on optiflow, vss, nadn. awaiting orders.
[2021-02-03] MEDS ORDERED: CEFDINIR 300 MG CAPSULE ONE (09:00)
[2021-02-03] MEDS ORDERED: CEFDINIR 300 MG CAPSULE PO/NG ONE (09:00)
[2021-02-03] MEDS ORDERED: SODIUM CHLORIDE FLUSH 10ML SYR IVF ONE (09:00)
--- NOTE | 2021-02-03 09:06 | NUR ---
pt sitting up in bed, medicated per emar, vss, nadn. will continue to monitor
[2021-02-03 09:25] LABS: BASOPHILS % (AUTO) 0 % (0-1); EOSINOPHILS % (AUTO) 0 % (1-7); LYMPHOCYTES % (AUTO) 4 % (22-44); MEAN CORPUSCULAR HEMOGLOBIN 31.3 pg (27.5-34.5); MEAN CORPUSCULAR HGB CONC 32.9 g/dL (33.2-36.2); MEAN PLATELET VOLUME 7.3 fL (7.4-10.4); MONOCYTES % (AUTO) 3 % (2-9); NEUTROPHILS % (AUTO) 93 % (42-75); PLATELET COUNT 228 x10^3/uL (130-400); RED BLOOD COUNT 4.01 x10^6/uL (4.38-5.82); RED CELL DISTRIBUTION WIDTH 14.9 % (9.4-14.8)
[2021-02-03 09:33] LABS: ALBUMIN 3.5 g/dL (3.4-5.0); ANION GAP 4 mmol/L (5-15); CALCIUM 9.1 mg/dL (8.5-10.1); CHLORIDE 106 mmol/L (98-107); CREATININE 1.05 mg/dL (0.7-1.3)
[2021-02-03 09:37] LABS: TROPONIN I < 0.015 ng/mL (0.000-0.045)
[2021-02-03 09:48] LABS: MD SCAN
--- NOTE | 2021-02-03 10:22 | NUR ---
LESLEE Riggs, at bedside. Per MD Ferguson POC includes d/c, pt placed on baseline home O2 of 4L NC to observe O2 saturation. VSS, NADN, pt awake and alert.
--- NOTE | 2021-02-03 10:23 | NUR ---
TP RN: CALL TO [facility], PT PICKED UP CEFDINIR, ALBUTEROL SULFATE AND PREDNISONE. WAS UNABLE TO BANK EXAMINER FLUTICASON/VILANTEROL R/T NOT IN STOCK AND REMAINS OUT OF STOCK AT THIS TIME. PT VERIFIED THAT HE DID BANK EXAMINER AVAILABLE MEDICATIONS. DISCUSSED WITH DR MEDRANO. PT TAKEN OFF OF OPTIFLOW AND PLACED ON NORMALLY USED OXYGEN OF 4L NC. PT AWARE OF PENDING DC AND [facility] TO BE CALLED FOR TRANSPORT. DISCUSSED WITH PT F/U WITH [facility]. PRIMARY RN UPDATED.
--- NOTE | 2021-02-03 10:35 | NUR ---
TP RN: SPOKE WITH [facility], TO BE HERE APPROX 1130. PT MAINTAINING O2 SATS 97% ON RA. Addendum: 02/03/21 at 1042 by KEVIN PT REMAINS OF 4L NC
[2021-02-03 11:30] VITALS: BP 144/65
== END 2021-02-03 11:41 | disposition home or self-care (01) ==
LOC: ED 07:46 → UNDOADMIN 09:43 → EDIP 09:43 → ED 11:35
DX: J43.9 Emphysema, unspecified (principal); R94.31 Abnormal electrocardiogram [ECG] [EKG]; R06.02 Shortness of breath; K21.9 Gastro-esophageal reflux disease without esophagitis; Z90.49 Acquired absence of other specified parts of digestive tract
CPT/HCPCS: 36415; 71045; 80048; 82040; 84484; 85025; 93005

== ENCOUNTER 2021-02-13 07:52 | Emergency (ER) | payer MEDICARE ==
[~2021-02-13] VITALS: Ht 180.3 cm; Wt 70.0 kg
[~2021-02-13 07:52] MED LIST changes: -DOXY100C2 PO; +DOXY100C5 PO
--- NOTE | 2021-02-13 08:06 | NUR ---
Pt BIB EMS due to emphysema exacerbation. Pt reports that he is typically on 4L NC at home, 2L NC here and O2 sat in high 90s. Connected to all moitors, VSS, DALL[place]. A&O x4, able to communicate in full sentences, changed into gown independently. Given a warm blanket and positioned for comfort.
[2021-02-13] MEDS ORDERED: ALBUTEROL/IPRATROPIUM 2.5MG/0.5MG, 3 ML ONE (08:15)
[2021-02-13 08:18] VITALS: BP 114/79
--- NOTE | 2021-02-13 08:21 | NUR ---
Pt given neb per MAR, VSS, sitting up comfortably in bed, NADN
[2021-02-13] MEDS ORDERED: ALBUTEROL/IPRATROPIUM 2.5MG/0.5MG, 3 ML NPPB ONE (08:30)
[2021-02-13 08:47] LABS: BASOPHILS % (AUTO) 1 % (0-1); EOSINOPHILS % (AUTO) 2 % (1-7); LYMPHOCYTES % (AUTO) 16 % (22-44); MEAN CORPUSCULAR HEMOGLOBIN 31.2 pg (27.5-34.5); MEAN CORPUSCULAR HGB CONC 32.8 g/dL (33.2-36.2); MEAN PLATELET VOLUME 7.5 fL (7.4-10.4); MONOCYTES % (AUTO) 9 % (2-9); NEUTROPHILS % (AUTO) 72 % (42-75); PLATELET COUNT 212 x10^3/uL (130-400); RED BLOOD COUNT 3.88 x10^6/uL (4.38-5.82)
--- NOTE | 2021-02-13 08:50 | NUR ---
Pt reports that work of breathing has improved after neb tx.
[2021-02-13 08:53] LABS: ALBUMIN 3.2 g/dL (3.4-5.0); CALCIUM 8.9 mg/dL (8.5-10.1); CREATININE 1.11 mg/dL (0.7-1.3)
[2021-02-13 08:57] LABS: TROPONIN I < 0.015 ng/mL (0.000-0.045)
[2021-02-13 09:08] LABS: ANION GAP 5 mmol/L (5-15)
[2021-02-13 09:09] LABS: CHLORIDE 109 mmol/L (98-107)
[2021-02-17] MEDS ORDERED: ALBU5SOL6 INH (10:35)
[2021-02-18] MEDS ORDERED: PRED20TA PO (09:59)
[2021-02-18] MEDS ORDERED: AMOX1TAB64 PO (10:00)
== END 2021-02-13 09:52 | disposition home or self-care (01) ==
LOC: ED 08:42
DX: J44.1 Chronic obstructive pulmonary disease with (acute) exacerbation (principal); R06.00 Dyspnea, unspecified; R06.02 Shortness of breath; I49.1 Atrial premature depolarization; Z72.9 Problem related to lifestyle, unspecified; F17.200 Nicotine dependence, unspecified, uncomplicated
CPT/HCPCS: 36415; 71045; 80048; 82040; 84484; 85025; 93005; 94640; 99285

== ENCOUNTER 2021-02-13 22:15 | Emergency (ER) | payer MEDICARE ==
[~2021-02-13] VITALS: Ht 180.3 cm; Wt 65.0 kg
[2021-02-13] MEDS ORDERED: ALBUTEROL/IPRATROPIUM 2.5MG/0.5MG, 3 ML NPPB SCH (23:00)
[2021-02-13] MEDS ORDERED: ALBUTEROL/IPRATROPIUM 2.5MG/0.5MG, 3 ML NPPB PRN (23:00)
[2021-02-13] MEDS ORDERED: ALBUTEROL/IPRATROPIUM 2.5MG/0.5MG, 3 ML ONE (23:00)
[2021-02-14] MEDS ORDERED: ACETAMINOPHEN 325 MG TABLET ONE (00:46)
[2021-02-14 00:57] VITALS: BP 122/53
[2021-02-14] MEDS ORDERED: ACETAMINOPHEN 325 MG TABLET PO ONE (01:00)
[2021-02-17] MEDS ORDERED: ALBU5SOL6 INH (10:35)
[2021-02-18] MEDS ORDERED: PRED20TA PO (09:59)
[2021-02-18] MEDS ORDERED: AMOX1TAB64 PO (10:00)
== END 2021-02-14 01:14 | disposition home or self-care (01) ==
LOC: ED 22:48
DX: J44.1 Chronic obstructive pulmonary disease with (acute) exacerbation (principal); R06.02 Shortness of breath; R06.00 Dyspnea, unspecified; F17.210 Nicotine dependence, cigarettes, uncomplicated; Z90.49 Acquired absence of other specified parts of digestive tract; Z85.46 Personal history of malignant neoplasm of prostate
CPT/HCPCS: 93005; 94640; 99283; 99406; J7512

== ENCOUNTER 2021-02-19 08:34 | Emergency (ER) | payer MEDICARE ==
[~2021-02-19] VITALS: Ht 180.3 cm; Wt 75.0 kg
[~2021-02-19 08:34] MED LIST changes: +ALBU5SOL6 INH; +AMOX1TAB64 PO; +DOXY100C2 PO; -DOXY100C5 PO
--- NOTE | 2021-02-19 08:49 | NUR ---
THIS IS A 80 YO M BIB EMS FROM HOME W/ C/O SOB SINCE 0700AM. PT WAS DC FROM THIS FACILITY YESTERDAY. PT REPORTS NO RELIEF W/ HOME INHALERS. PT RECEIVED 1 DUONEB TX, 1 ALBUTEROL TX, 125 MG METHYLPREDNISONE AND 250 [place] SHERIFF BY EMS. PIV IN PLACE. DR.VAN DE LA FUENTE AT BEDSIDE. PLAN IS TO OBSERVE TO SEE IF BREATHING [place] SHERIFF IS THERAPEUTIC. PT RESTING ON GURNEY W/ CALL LIGHT IN REACH AND SIDE RAILS UPX2. TACHYPNEIC, OTHER VS WDL. NADN.
--- NOTE | 2021-02-19 09:09 | NUR ---
RECEIVED REPORT FROM SANDRA CHARLES. PT RESTING ON PATSYALHAJI. NADN. REDD.
[2021-02-19 09:17] LABS: ANION GAP 3 mmol/L (5-15); CALCIUM 9.3 mg/dL (8.5-10.1); CHLORIDE 107 mmol/L (98-107); CREATININE 1.13 mg/dL (0.7-1.3)
[2021-02-19 09:20] LABS: BASOPHILS % (AUTO) 0 % (0-1); EOSINOPHILS % (AUTO) 1 % (1-7); LYMPHOCYTES % (AUTO) 21 % (22-44); MEAN CORPUSCULAR HEMOGLOBIN 31.4 pg (27.5-34.5); MEAN CORPUSCULAR HGB CONC 33.2 g/dL (33.2-36.2); MEAN PLATELET VOLUME 7.4 fL (7.4-10.4); MONOCYTES % (AUTO) 11 % (2-9); NEUTROPHILS % (AUTO) 66 % (42-75); PLATELET COUNT 253 x10^3/uL (130-400); RED BLOOD COUNT 4.02 x10^6/uL (4.38-5.82); RED CELL DISTRIBUTION WIDTH 15.1 % (9.4-14.8)
[2021-02-19 09:22] LABS: MD NO
--- NOTE | 2021-02-19 09:43 | NUR ---
PER ERP DR. MCKEE NO NEED FOR CXR AT THIS TIME.
[2021-02-19] MEDS ORDERED: ALBUTEROL SULFATE 2.5 MG/3 ML ONE (09:44)
--- NOTE | 2021-02-19 09:47 | NUR ---
PT MEDICATED PER JAN. RESTING ON EMMETT. VSS.
[2021-02-19] MEDS ORDERED: ALBUTEROL SULFATE 2.5 MG/3 ML NPPB ONE (10:00)
--- NOTE | 2021-02-19 10:34 | NUR ---
PT RESTING ON EMMETT. DALLAS. VSS. PT STATES NO IMPROVEMENT AFTER NEB TX. ERP DR. MCKEE NOTIFIED.
--- NOTE | 2021-02-19 10:39 | NUR ---
LESLEE BURCIAGA AWARE OF NEED FOR CONSULT.
--- NOTE | 2021-02-19 11:10 | NUR ---
PT RESTING ON GURNEY. NADN. REDD.
[2021-02-19] MEDS ORDERED: ALBUTEROL/IPRATROPIUM 2.5MG/0.5MG, 3 ML NEB ONE (11:30)
[2021-02-19] MEDS ORDERED: ALBUTEROL/IPRATROPIUM 2.5MG/0.5MG, 3 ML ONE (11:31)
--- NOTE | 2021-02-19 11:34 | NUR ---
PER LESLEE BURCIAGA PT OKAY TO DC HOME PT HAS OUTPATIENT RESOURCES IN PLACE SET UP FROM [facility] VISIT. PT STATES HE HAS NO WAY OF GETTING INTO HIS APARTMENT. LESLEE BURCIAGA NOTIFIED.
--- NOTE | 2021-02-19 11:42 | NUR ---
PT AWARE THIS RN WILL CALL PT APARTMENT. PT STATES "I TOLD YOU THERE'S NO ONE THERE BUT GO AHEAD CALL". SPOKE W/ NBA AT [facility] WHERE PT LIVES AND STATES SHE WILL BE ABLE TO HAVE SOMEONE OPEN PT'S APARTMENT FOR HIM WHEN HE GETS THERE.
[2021-02-19 12:05] VITALS: BP 124/59
--- NOTE | 2021-02-19 12:06 | NUR ---
PT RESTING ON GURNEY. NADN. REDD.
== END 2021-02-19 12:27 | disposition home or self-care (01) ==
LOC: ED 09:23
DX: J96.11 Chronic respiratory failure with hypoxia (principal); J44.1 Chronic obstructive pulmonary disease with (acute) exacerbation; K21.9 Gastro-esophageal reflux disease without esophagitis; F17.200 Nicotine dependence, unspecified, uncomplicated; Z90.49 Acquired absence of other specified parts of digestive tract
CPT/HCPCS: 36415; 71045; 80048; 85025; 93005; 94640; 99285; J7613

== ENCOUNTER 2021-03-08 08:28 | Emergency (ER) | payer MEDICARE ==
[~2021-03-08] VITALS: Ht 180.3 cm; Wt 76.0 kg
[~2021-03-08 08:28] MED LIST changes: -DOXY100C2 PO; +DOXY100C5 PO
[2021-03-08] MEDS ORDERED: ALBUTEROL/IPRATROPIUM 2.5MG/0.5MG, 3 ML NEB ONE (09:00)
[2021-03-08] MEDS ORDERED: ALBUTEROL/IPRATROPIUM 2.5MG/0.5MG, 3 ML ONE (09:09)
--- NOTE | 2021-03-08 09:17 | NUR ---
Pt BIB EMS for COPD exacerbation, EKG done, sats of 99% on 4L NC, pt normally on 4L NC at home. Provided warm blankets, positioned for comfort, call light in reach, placed on BP and O2 monitors, Neb given per D[place] LOTT. No other requests at this time.
[2021-03-08] MEDS ORDERED: ALBUTEROL SULFATE 2.5 MG/3 ML NPPB ONE (09:30)
--- NOTE | 2021-03-08 09:46 | NUR ---
Resp Tx complete, lung sounds are clear w/ slightly diminished sounds at bilat bases, currently 98% 4L NC
[2021-03-08 10:43] VITALS: BP 139/68
== END 2021-03-08 11:02 | disposition home or self-care (01) ==
LOC: ED 09:01
DX: J44.1 Chronic obstructive pulmonary disease with (acute) exacerbation (principal); J44.9 Chronic obstructive pulmonary disease, unspecified; K21.9 Gastro-esophageal reflux disease without esophagitis; Z90.49 Acquired absence of other specified parts of digestive tract; F17.290 Nicotine dependence, other tobacco product, uncomplicated
CPT/HCPCS: 93005; 94640; 99283

== ENCOUNTER 2021-03-23 08:05 | Emergency (ER) | payer MEDICARE ==
[~2021-03-23] VITALS: Ht 180.3 cm; Wt 75.0 kg
[~2021-03-23 08:05] MED LIST changes: +DOXY100C2 PO; -DOXY100C5 PO
--- NOTE | 2021-03-23 08:06 | NUR ---
PT BIB EMS FOR INCREASING SOB. PER EMS, PT IS SUPPOSED TO BE ON O2 AT ALL TIMES BUT WAS FOUND OUTSIDE HIS APT WITHOUT HIS O2 ON. PT STATES HE HAS BEEN HAVING INCREASED SOB SINCE HE BROKE HIS RIBS ON THE RIGHT SIDE 3 MONTHS AGO. PT ALSO COMPLAINING OF CHRONIC ARTHRITIS PAIN IN HIS LEG JOINTS. PIV STARTED BY EMS AND 1 DUONEB ROUTE SALESPERSON.
--- NOTE | 2021-03-23 08:29 | NUR ---
BREAK RN: LAB AT
[2021-03-23] MEDS ORDERED: prednisOLONE 15 MG/5 ML ORAL SOLN PO ONE (08:30)
[2021-03-23] MEDS ORDERED: SODIUM CHLORIDE FLUSH 10ML SYR IVF ONE (08:30)
--- NOTE | 2021-03-23 08:31 | NUR ---
BREAK RN: RT CALLED FOR BREATHING TX
[2021-03-23 08:41] LABS: BASOPHILS % (AUTO) 1 % (0-1); EOSINOPHILS % (AUTO) 5 % (1-7); LYMPHOCYTES % (AUTO) 23 % (22-44); MEAN CORPUSCULAR HEMOGLOBIN 31.5 pg (27.5-34.5); MEAN CORPUSCULAR HGB CONC 33.2 g/dL (33.2-36.2); MEAN PLATELET VOLUME 7.2 fL (7.4-10.4); MONOCYTES % (AUTO) 11 % (2-9); NEUTROPHILS % (AUTO) 60 % (42-75); PLATELET COUNT 226 x10^3/uL (130-400); RED BLOOD COUNT 3.64 x10^6/uL (4.38-5.82)
[2021-03-23 08:42] LABS: MD NO
[2021-03-23 08:52] LABS: ALBUMIN 3.3 g/dL (3.4-5.0); CALCIUM 8.9 mg/dL (8.5-10.1)
[2021-03-23 08:57] LABS: CREATININE 0.96 mg/dL (0.7-1.3); TROPONIN I < 0.015 ng/mL (0.000-0.045)
[2021-03-23] MEDS ORDERED: ALBUTEROL/IPRATROPIUM 2.5MG/0.5MG, 3 ML ONE (08:57)
[2021-03-23] MEDS: ALBUTEROL/IPRATROPIUM 2.5MG/0.5MG, 3 ML NPPB SCH (09:01)
[2021-03-23 09:06] LABS: ANION GAP 4 mmol/L (5-15); CHLORIDE 108 mmol/L (98-107)
[2021-03-23 11:00] VITALS: BP 143/69
--- NOTE | 2021-03-23 11:41 | NUR ---
ASSIST RN: D/C INSTRUCTIONS, MEDS & F/U APPT RV'WD WITH PT, HE VERBALIZES UNDERSTANDING. SPO2 95% ON RA, PT STATES HE LIVES [place] AND IS OKAY TO GO HOME WITHOUT O2. ASSISTED PT OUT OF ED VIA . CAB VOUCHER PROVIDED.
== END 2021-03-23 11:24 | disposition home or self-care (01) ==
LOC: ED 08:10
DX: J44.1 Chronic obstructive pulmonary disease with (acute) exacerbation (principal); I10 Essential (primary) hypertension; E78.5 Hyperlipidemia, unspecified; F17.200 Nicotine dependence, unspecified, uncomplicated; Z90.49 Acquired absence of other specified parts of digestive tract; Z85.46 Personal history of malignant neoplasm of prostate
CPT/HCPCS: 36415; 71045; 80048; 82040; 83880; 84484; 85025; 93005; 94640; 99285; J7510

== ENCOUNTER 2021-03-29 01:41 | Emergency (ER) | payer MEDICARE, MEDICAID ==
[~2021-03-29] VITALS: Ht 180.3 cm; Wt 65.5 kg
[2021-03-29 02:12] LABS: BASOPHILS % (AUTO) 1 % (0-1); EOSINOPHILS % (AUTO) 3 % (1-7); LYMPHOCYTES % (AUTO) 15 % (22-44); MEAN CORPUSCULAR HEMOGLOBIN 32.5 pg (27.5-34.5); MEAN CORPUSCULAR HGB CONC 33.8 g/dL (33.2-36.2); MEAN PLATELET VOLUME 6.9 fL (7.4-10.4); MONOCYTES % (AUTO) 9 % (2-9); NEUTROPHILS % (AUTO) 73 % (42-75); PLATELET COUNT 222 x10^3/uL (130-400); RED BLOOD COUNT 3.75 x10^6/uL (4.38-5.82)
[2021-03-29 02:15] LABS: MD NO
[2021-03-29 02:24] LABS: ALBUMIN 3.4 g/dL (3.4-5.0); ANION GAP 3 mmol/L (5-15); CALCIUM 8.9 mg/dL (8.5-10.1); CHLORIDE 110 mmol/L (98-107); CREATININE 1.01 mg/dL (0.7-1.3)
[2021-03-29 02:28] LABS: TROPONIN I < 0.015 ng/mL (0.000-0.045)
[2021-03-29 03:02] VITALS: BP 133/64
--- NOTE | 2021-03-29 03:02 | NUR ---
PT RESTING ON EMMETT HAYNES
[2021-03-29] MEDS ORDERED: AZITHROMYCIN 250 MG TABLET ONE (03:09)
--- NOTE | 2021-03-29 03:09 | NUR ---
ERP AT BEDSIDE FOR REASSESSMENT/ POC
--- NOTE | 2021-03-29 03:12 | NUR ---
ANTIBIOTICS GIVEN, DISCHARGE PAPER WORK GIVEN
[2021-03-29] MEDS ORDERED: AZITHROMYCIN 500 MG TABLET PO ONE ×2 (03:30)
--- NOTE | 2021-03-29 03:31 | NUR ---
Patient given discharge instructions and they have confirmed that they understand the instructions. Patient ambulatory with steady gait.
== END 2021-03-29 03:34 | disposition home or self-care (01) ==
LOC: ED 02:41
DX: J18.9 Pneumonia, unspecified organism (principal); I10 Essential (primary) hypertension; J44.9 Chronic obstructive pulmonary disease, unspecified; K21.9 Gastro-esophageal reflux disease without esophagitis; F17.210 Nicotine dependence, cigarettes, uncomplicated; R94.31 Abnormal electrocardiogram [ECG] [EKG]; Z85.46 Personal history of malignant neoplasm of prostate; Z90.49 Acquired absence of other specified parts of digestive tract
CPT/HCPCS: 36415; 71045; 80048; 82040; 84484; 85025; 93005; 99406

== ENCOUNTER 2021-04-08 03:09 | Emergency (ER) | payer MEDICAID, MEDICARE ==
[~2021-04-08] VITALS: Ht 180.3 cm; Wt 75.4 kg
--- NOTE | 2021-04-08 04:59 | NUR ---
Pt provided additional warm blankets, VSS, NADN, WCTM
[2021-04-08] MEDS ORDERED: ALBUTEROL/IPRATROPIUM 2.5MG/0.5MG, 3 ML ONE ×2 (05:16→06:20)
[2021-04-08] MEDS ORDERED: ALBUTEROL/IPRATROPIUM 2.5MG/0.5MG, 3 ML NPPB ONE ×2 (05:30→06:30)
--- NOTE | 2021-04-08 05:40 | NUR ---
Pt reports ease of breathing after neb treatment
[2021-04-08 06:04] LABS: ALBUMIN 3.4 g/dL (3.4-5.0); ANION GAP 5 mmol/L (5-15); CALCIUM 8.8 mg/dL (8.5-10.1); CHLORIDE 110 mmol/L (98-107); CREATININE 0.87 mg/dL (0.7-1.3)
[2021-04-08 06:10] LABS: BASOPHILS % (AUTO) 1 % (0-1); EOSINOPHILS % (AUTO) 1 % (1-7); LYMPHOCYTES % (AUTO) 6 % (22-44); MEAN CORPUSCULAR HEMOGLOBIN 32.9 pg (27.5-34.5); MEAN CORPUSCULAR HGB CONC 34.3 g/dL (33.2-36.2); MEAN PLATELET VOLUME 7.3 fL (7.4-10.4); MONOCYTES % (AUTO) 4 % (2-9); NEUTROPHILS % (AUTO) 88 % (42-75); PLATELET COUNT 183 x10^3/uL (130-400); RED CELL DISTRIBUTION WIDTH 15.5 % (9.4-14.8)
[2021-04-08 06:12] LABS: MD NO
--- NOTE | 2021-04-08 06:56 | NUR ---
Report to Caterina FLORES
--- NOTE | 2021-04-08 06:58 | NUR ---
PT REPORT FROM SANDRA CRAWFORD. PT CARE TO BE ASSUMED.
[2021-04-08] MEDS ORDERED: ALBUTEROL SULFATE 2.5 MG/3 ML NPPB ONE (07:00)
--- NOTE | 2021-04-08 07:02 | NUR ---
PER SANDRA CRAWFORD, THIRD NEB TX HAS BEEN ORDERED. eMAR REVIEWED. FIRST DUONEB GIVEN AT 0520. SECOND DUONEB ORDERED AT 0630 - NOT MARKED GIVEN. PROVENTIL ORDERED AT 0700; WILL BE GIVEN.
[2021-04-08] MEDS ORDERED: ALBUTEROL SULFATE 2.5 MG/3 ML ONE (07:05)
[2021-04-08 07:10] VITALS: BP 129/65
--- NOTE | 2021-04-08 07:15 | NUR ---
PT A&OX4, RESP EVEN & SHALLOW, SPEECH CLEAR. LS: INSP & EXP WHEEZES & CRACKLES AT BASES BILAT, INSP & EXP WHEEZES MID & UPPER SMITH BILAT. PROVENTIL NEB TX INTIATED.
[2021-04-08] MEDS ORDERED: BUDE10.2 PO (07:17)
[2021-04-08] MEDS ORDERED: TIOT18CA INH (07:17)
--- NOTE | 2021-04-08 07:29 | NUR ---
RESP TECH AT BS
== END 2021-04-08 08:25 | disposition home or self-care (01) ==
LOC: ED 04:09
DX: J43.9 Emphysema, unspecified (principal); R06.02 Shortness of breath; R94.31 Abnormal electrocardiogram [ECG] [EKG]; K21.9 Gastro-esophageal reflux disease without esophagitis; I10 Essential (primary) hypertension; Z85.46 Personal history of malignant neoplasm of prostate; Z90.49 Acquired absence of other specified parts of digestive tract; F17.200 Nicotine dependence, unspecified, uncomplicated; Z88.2 Allergy status to sulfonamides; Z88.6 Allergy status to analgesic agent
CPT/HCPCS: 36415; 71045; 80048; 82040; 85025; 93005; 94640; 99285; J7613

== ENCOUNTER 2021-05-12 17:23 | Emergency (ER) | payer MEDICARE ==
[~2021-05-12] VITALS: Ht 180.3 cm; Wt 63.0 kg
[~2021-05-12 17:23] MED LIST changes: -ALBU5SOL6 INH; +BUDE10.2 PO; +DOCU50LI23 INH
--- NOTE | 2021-05-12 17:30 | NUR ---
BIB EMS FROM [facility] AFTER DEVELOPING CP AND SOB X 1 HOUR AGO. PT CURRENTLY HAS R SIDED BROKEN RIBS SECONDARY TO FALL. PT WAS GIVEN 1 NITRO AND 324 MG ASA MECHANICAL ENGINEERING TECHNOLOGIST. NO CHANGE IN CP AFTER ADMIN OF NITRO BUT DECREASE IN BP PER EMS. PT RESTING ON GURNEY. NADN. MONITORS APPLIED. VSS. PT REFUSED BLANKET. CALL LIGHT IN REACH. LIDOCAINE PATCH CURRENTLY ON R CHEST PLACED 05/12/2021.
[2021-05-12] MEDS ORDERED: ONDANSETRON 2MG/ML, 2ML ONE (17:52)
[2021-05-12] MEDS ORDERED: MORPHINE SULFATE 4 MG/ML, 1ML ONE (17:53)
[2021-05-12] MEDS ORDERED: MORPHINE SULFATE 4 MG/ML, 1ML IVPush PRN (18:00)
--- NOTE | 2021-05-12 18:07 | NUR ---
PER ERP DR. GONZÁLES NO NEED FOR D-DIMER LAB AT THIS TIME.
[2021-05-12 18:12] LABS: ALANINE AMINOTRANSFERASE 122 U/L (12-78); ALBUMIN 3.1 g/dL (3.4-5.0); ANION GAP 3 mmol/L (5-15); CALCIUM 8.9 mg/dL (8.5-10.1); CHLORIDE 106 mmol/L (98-107); CREATININE 0.94 mg/dL (0.7-1.3)
[2021-05-12 18:17] LABS: ALKALINE PHOSPHATASE 143 U/L (45-117); BILIRUBIN,TOTAL 0.4 mg/dL (0.2-1.0); TOTAL PROTEIN 6.3 g/dL (6.4-8.2); TROPONIN I < 0.015 ng/mL (0.000-0.045)
[2021-05-12 18:19] LABS: BASOPHILS % (AUTO) 1 % (0-1); EOSINOPHILS % (AUTO) 4 % (1-7); LYMPHOCYTES % (AUTO) 19 % (22-44); MEAN CORPUSCULAR HEMOGLOBIN 32.4 pg (27.5-34.5); MEAN CORPUSCULAR HGB CONC 33.6 g/dL (33.2-36.2); MEAN PLATELET VOLUME 7.5 fL (7.4-10.4); MONOCYTES % (AUTO) 10 % (2-9); NEUTROPHILS % (AUTO) 67 % (42-75); PLATELET COUNT 214 x10^3/uL (130-400); RED BLOOD COUNT 3.42 x10^6/uL (4.38-5.82); RED CELL DISTRIBUTION WIDTH 14.6 % (9.4-14.8)
--- NOTE | 2021-05-12 18:28 | NUR ---
PT RESTING ON GURNEY. NADN. REDD.
[2021-05-12] MEDS ORDERED: SODIUM CHLORIDE FLUSH 10ML SYR IVF ONE (18:30)
[2021-05-12] MEDS ORDERED: ONDANSETRON 2MG/ML, 2ML IVPush ONE (18:30)
--- NOTE | 2021-05-12 18:39 | NUR ---
PT CHART REVIEWED AND PLACED FOR RECHECK.
--- NOTE | 2021-05-12 19:21 | NUR ---
PT RESTING ON GURNEY. NADN. REDD.
--- NOTE | 2021-05-12 19:52 | NUR ---
REPORT GIVEN TO QUETA, RECEIVING RN AT [facility]. ALL QUESTIONS ANSWERED. PT TO BE TRANSPORTED BACK TO FACILITY.
--- NOTE | 2021-05-12 20:10 | NUR ---
PT RESTING ON GURNEY. NADN. REDD.
--- NOTE | 2021-05-12 20:50 | NUR ---
REPORT GIVEN TO BRIAN CANTOR RN.
--- NOTE | 2021-05-12 20:52 | NUR ---
SBAR REPORT RECEIVED FROM SATHISH. ALL TASK COMPLETED, JUST WAITING FOR ETA FOR PT TO TX BACK TO FACILITY. [place].
[2021-05-12 21:45] VITALS: BP 135/65
--- NOTE | 2021-05-12 21:53 | NUR ---
PT DRESSED, REMOVED BP CUFF AND PULSE OX, LEFT RETAIL FIELD MERCHANDISER IN PLACE. PT PROVIDED CRACKERS AND PB. NADN, CALL LIGHT W/IN REACH.
[2021-05-12 22:34] LABS: TROPONIN I < 0.015 ng/mL (0.000-0.045)
== END 2021-05-12 23:06 | disposition home or self-care (01) ==
LOC: ED 18:00
DX: R07.2 Precordial pain (principal); Z72.9 Problem related to lifestyle, unspecified; R00.0 Tachycardia, unspecified; R06.02 Shortness of breath; I10 Essential (primary) hypertension; K21.9 Gastro-esophageal reflux disease without esophagitis; J44.9 Chronic obstructive pulmonary disease, unspecified; Z85.46 Personal history of malignant neoplasm of prostate
CPT/HCPCS: 36415; 71045; 80053; 83880; 84484; 85025; 93005; 96374; 96375; 99285; J2270; J2405

== ENCOUNTER 2021-07-24 07:05 | Emergency (ER) | payer MEDICARE, MEDICAID ==
[~2021-07-24] VITALS: Ht 180.3 cm; Wt 71.5 kg
[~2021-07-24 07:05] MED LIST changes: +ALBU5SOL6 INH; -DOCU50LI23 INH; -DOXY100C2 PO; +DOXY100C5 PO
--- NOTE | 2021-07-24 08:15 | NUR ---
PT IN ROOM AT THIS TIME. PT STATES HE IS SOB FROM HIS EMPHYSEMA. DENIES CP, FEELS TIGHT AROUND CHEST. SYMPTOMS STARTED THIS AM, WORSENING. PT MONITORED. CALL LIGHT IN REACH. SIDE RAILS IN PLACE.
[2021-07-24] MEDS ORDERED: ALBUTEROL/IPRATROPIUM 2.5MG/0.5MG, 3 ML ONE (08:39)
[2021-07-24] MEDS ORDERED: ALBUTEROL/IPRATROPIUM 2.5MG/0.5MG, 3 ML NPPB ONE (09:00)
--- NOTE | 2021-07-24 09:43 | NUR ---
PT STATES HIS BREATHING IS BETTER. OK TO BE DC. NEEDS MED [facility] TO [facility]. GAVE PT FOOD AND WATER.
--- NOTE | 2021-07-24 10:24 | NUR ---
Brandon resendiz in [facility] - 07/24/21 at 1028 by ANDRES ZENON FAXED TO JESSICA
--- NOTE | 2021-07-24 10:28 | NUR ---
ATTEMPTED TO CALL [facility] TO ARRANGE TRANSPORT. VOICEMAIL LEFT.
--- NOTE | 2021-07-24 11:42 | NUR ---
SAL DE LA GARZA AT [facility], PT TO BE TRANSPORTED HOME AT 1230
[2021-07-24 12:00] VITALS: BP 145/82
--- NOTE | 2021-07-24 12:00 | NUR ---
PT SITTING WATCHING TV. WAITING FOR [facility]
--- NOTE | 2021-07-24 12:37 | NUR ---
PT DC BY [facility]. GIVEN DC INSTRUCTIONS. PT STEADY GAIT TO WHEELCHAIR. 5L O2 IN PLACE.
== END 2021-07-24 12:39 | disposition home or self-care (01) ==
LOC: ED 07:11
DX: J43.9 Emphysema, unspecified (principal); I10 Essential (primary) hypertension; K21.9 Gastro-esophageal reflux disease without esophagitis; F17.200 Nicotine dependence, unspecified, uncomplicated; Z90.49 Acquired absence of other specified parts of digestive tract
CPT/HCPCS: 71045; 99283